=== PATIENT | female | born 1945 | race Caucasian/White ===

== ENCOUNTER 2020-03-17 15:45 | IRF | payer MEDICARE, SELFPAY ==
--- NOTE | ~2020-03-17 | US_ITS ---
EXAMINATION:US venous doppler LE BI INDICATION:Lower extremity swelling TECHNIQUE: Multiple grayscale, color flow and Doppler images of the lower extremity deep venous syste ms were obtained and reviewed. COMPARISON:No prior studies for comparison. FINDINGS: The common femoral, superficial femoral and popliteal veins demonstrate normal respiratory variation, augmentation and compressibility. Color flow is also seen within the posterior tibial, pe roneal, greater saphenous and profunda veins. IMPRESSION: 1: No lower extremity deep venous thrombosis. Reviewed, dictated and finalized at location A.
--- NOTE | ~2020-03-17 | CT_ITS ---
EXAMINATION: CT brain wo con INDICATION: Headache COMPARISON: None TECHNIQUE: Standard unenhanced head CT. The dose-length product (DLP) was 605.33 mGy-cm. The mA was a djusted according to patient size. Iterative reconstruction technique was employed. FINDINGS: There is no acute intraparenchymal hemorrhage. No evidence of mass lesion. No evidence of a cute infarction. Areas of low attenuation are present in the bilateral basal ganglia and midbrain. Th ere is moderate periventricular and subcortical hypodensity probably related to small vessel ischemic disease. There is moderate prominence of the sulci and ventricles related to cerebral atrophy. Intra cranial calcified cerebral atherosclerosis is noted. There are no extra-axial collections. There is n o mass effect or midline shift. The orbits and soft tissues are unremarkable. The visualized sinuses and mastoid air cells are well aerated. IMPRESSION: 1. Areas of low attenuation in the bilateral basal ganglia and midbrain which may reflect subacute or chronic infarct. 2. Age related findings. Reviewed, dictated and finalized at location A. IMPRESSION: 1. Areas of low attenuation in the bilateral basal ganglia and midbrain which m ay reflect subacute or chronic infarct. 2. Age related findings.
[2020-03-17 15:45] VITALS: BP 142/87; PULSE 60; RESP 20; TEMP 36.6; O2SAT 98; BMI 30.3
--- NOTE | 2020-03-17 16:02 | PC.NURSE ---
This patient, Jasmine Wisdom, was admitted to [facility] Room 224-01. Patient/family oriented to hospital policies and general routines including ID bracelet, bed and alarms, visiting hours, pain management, procedures, bathroom and other care routines, personal items, smoking policy, room service/diet, and visiting hours. Valuables list has been completed. Information on how to activate the Rapid Response Team has been discussed. Patient/Family are encouraged to report perceived risks to care and to ask questions if they do not understand what they are told or what they should do.
[2020-03-17] MEDS: CEPHALEXIN 500 MG CAPSULE PO (20:42)
[2020-03-17] MEDS: ATORVASTATIN 40 MG TABLET PO (20:42)
[2020-03-17 22:00] VITALS: BP 169/65; PULSE 60; RESP 18; TEMP 37.4; O2SAT 98
[2020-03-18 04:41] LABS: Basophils Absolute Auto 0.1 K/mm3 (0.0-0.1); Basophils Percent Auto 1.1 % (0.2-1.2); Eosinophils Absolute Auto 0.3 K/mm3 (0-0.3); Eosinophils Percent Auto 6.9 % (0-4.4); Hematocrit 34.6 % (37.0-47.0); Hemoglobin 11.1 g/dL (12.0-15.0); Immature Granulocyte Absolute 0.01 K/mm3 (0.00-0.031); Immature Granulocyte Percent A 0.2 % (0-0.5); Lymphocytes Absolute Auto 1.42 K/mm3 (0.9-3.2); Lymphocytes Percent Auto 30.7 % (18.3-44.2); Mean Corpuscular HGB Conc 32.1 g/dl (32-36); Mean Corpuscular Volume 84.2 fl (80-100); Mean Platelet Volume 11.3 fl (7.4-10.4); Monocytes Absolute Auto 0.7 K/mm3 (0.1-0.6); Monocytes Percent Auto 14.5 % (2.6-8.5); Neutrophils Absolute Auto 2.2 K/mm3 (1.3-6.7); Neutrophils Percent Auto 46.6 % (45.5-73.1); Platelet Count Result 194 k/mm3 (150-375); Red Blood Count 4.11 M/mm3 (4.2-5.4); Red Cell Distribution Width 15.7 % (11.5-14.5); White Blood Count 4.6 K/mm3 (4.5-10.0)
[2020-03-18 04:53] LABS: Blood Urea Nitrogen 24 mg/dL (7-17); Carbon Dioxide 27 mmol/L (22-30); Chloride 107 mmol/L (98-107); Cholesterol 107 mg/dL (0-200); Estimated CRCL calculation 36 ml/min; Estimated Glomerular Filt Rate 44; Glucose 103 mg/dL (65-105); HDL Direct 30 mg/dL; Potassium 3.7 mmol/L (3.4-5.0); Sodium 137 mmol/L (137-145); Triglycerides 138 mg/dL (<150)
[2020-03-18 05:04] LABS: LDL Cholesterol Direct 51 mg/dL
[2020-03-18 06:00] VITALS: BP 195/83; PULSE 53; RESP 18; TEMP 36.4; O2SAT 95
[2020-03-18 09:41] VITALS: PULSE 53
[2020-03-18] MEDS: ASPIRIN 81 MG ENTERIC TABLET PO (09:41)
[2020-03-18] MEDS: atenoloL 50 MG TABLET PO (09:41)
[2020-03-18] MEDS: CEPHALEXIN 500 MG CAPSULE PO ×2 (09:41→20:13)
[2020-03-18] MEDS: CITALOPRAM HYDROBROMIDE 20 MG TABLET PO (09:41)
[2020-03-18] MEDS: CHOLECALCIFEROL 1,000 UNIT TABLET 1000 UNITS PO (09:41)
[2020-03-18] MEDS: PANTOPRAZOLE 40 MG TABLET PO (09:42)
[2020-03-18] MEDS: hydrALAZINE HCL 25 MG TABLET PO ×3 (09:42→17:57)
[2020-03-18] MEDS: CLOPIDOGREL BISULFATE 75 MG TABLET PO (09:42)
[2020-03-18] MEDS: VALSARTAN 80 MG TABLET PO (09:42)
[2020-03-18 13:11] VITALS: BMI 30.3
[2020-03-18 14:00] VITALS: BP 168/68; PULSE 62; RESP 20; TEMP 36.6; O2SAT 100
--- NOTE | 2020-03-18 15:16 | RPD ---
INDIVIDUALIZED PLAN OF CARE FOR Jasmine Wisdom Brief Synthesis of Pre-Admission Screen, Post-Admission Evaluation and Therapy Evaluations: The patient presents to rehab with right internal capsule stroke. Comorbidities include hypertensive emergency, urinary tract infection, hyperlipidemia, mood disorder, acute cystitis, acute pain, headache, dysphagia, left-sided weakness, left sided facial droop. The patient requires physician services for neurology services, medical oversight, and coordination of care. Emotional needs will be monitored as depression is a common sequelae of stroke. The patient needs physician monitoring and treatment of uncontrolled hypertension, urinary tract infection, monitoring for adverse reactions to new medications, monitoring of infection, and pain control. The patient requires nursing services for frequent neuro checks, anticoagulation therapy, medication management and education, pressure relief and skin care management, monitoring of labs, and fall/safety precautions. Deficits include:ADLs, Balance, Endurance, Family Training/Education, Mobility, Pain Management, ROM, Safety, Strength, Swallowing, Transfers Senior Risk Manager/Case Management for: Discharge Planning and Patient/Family Counseling Physical Therapy: 5 days per week for 75 minutes. Treatments may include: Therapeutic Exercise, Gait Training, Neuromuscular Re-education, Transfer Training, Community Reintegration, Bed Mobility, Patient/Family Education, Wheelchair Mobility Group Therapy/Concurrent Therapy Rationales: -Improve attention span during functional activities in a distracted environment. -Enhance problem solving and/or adequate judgment skills during functional activities in a distracted environment. -Promote increased safety awareness in a distracted environment to reduce fall risk with functional tasks, transfers, and ambulation to allow a more safe, self-sufficient return to the home environment. -Improve dynamic balance skills to promote safety and independence with functional activities in a distracted environment for maximum gain. Occupational Therapy: 5 days per week for 75 minutes. Treatments may include: Therapeutic Exercise, Therapeutic Activity, Cognitive Training, Self-Care Transfer Training, Community Reintegration, Home Management, Patient/Family Education, Wheelchair Mobility Training, Energy Conservation Training Group Therapy/Concurrent Therapy Rationales: -Allow therapist to observe and teach generalization and carry-over of skills learned in individual therapy. -Enhance problem solving and sequencing skills during therapeutic activities in a distracted environment. -Promote increased safety awareness in a realistic setting to reduce fall risk with functional tasks due to visual and verbal distractions. -Increase functional level with ADLs, ADL transfers and use of adaptive equipment through therapeutic activities with others while promoting safety to allow a more safe, self-sufficient return home. Speech Therapy: 5 days per week for 30 minutes. Treatments may include: Dysphasia Therapy, Speech/Language/Communication Therapy, Cognitive Training, Patient/Family Education Group Therapy/Concurrent Therapy - Rationale: -Allow therapist to observe and teach generalization and carry-over of skills learned in individual therapy. -Improve comprehension skills with complex or abstract ideas through discussion in a realistic setting. -Enhance problem solving skills with complex issues during activities in a distracted environment. -Promote increased memory skills and concentration in a distracted environment for a safe transition home. -Improve attention and focus with language/communication skills in a realistic and supportive therapeutic setting. -Allow for practice of expression of basic needs and ideas through functional activities with others. Medical Prognosis: Good Anticipated Length of Stay: 14-21 days Rehab Goals: Eating Goal: 06-Independent O
--- NOTE | 2020-03-18 17:53 | REHAB_ITS ---
DATE OF SERVICE: 03/17/2020 ADMISSION HISTORY AND PHYSICAL A 74-year-old right-handed female has been admitted to the rehab floor of [facility] on 03/17/2020. The patient was seen today. The patient's etiological diagnosis is right internal capsular stroke with the primary rehab impairment category of stroke. HISTORY OF PRESENT ILLNESS: A 74-year-old right-handed female with past medical history of: 1. Depression. 2. Hyperlipidemia. 3. Hypertension. Presented to [facility] on 03/12/2020 with left-sided weakness and facial droop. The patient reported she went to sleep around 11:00 p.m. and woke up at 10:00 a.m. and could not get out of bed due to the left-sided weakness. She also noted the droopiness of the face and had difficulties with the speech. CT scan of the head done revealed no intracranial bleed. Blood pressure was 242/95. She was admitted for further evaluation and management by Dr. Lanier, neurologist at that particular hospital. She was started on aspirin, Plavix and atorvastatin. An MRI of the brain, carotid ultrasound and echocardiogram were ordered. MRI of the brain documented an acute stroke in the right internal capsule. The carotid ultrasound revealed no significant stenosis. Echocardiogram was negative with ejection fraction of 73%. She was diagnosed to have an acute stroke in the setting of the hypertensive emergency. She passed a swallowing study and was placed in a pureed diet with no straws. She was also found to have urinary tract infection with E. coli and was placed on Rocephin. Physical examination continued to have the left-sided weakness with impaired balance, decreased gross motor control, and dysphagia. She was discharged to rehab on Lovenox subcutaneous for DVT prophylaxis. The patient has not traveled outside the [place] or had contact with someone who is ill or has traveled outside the [place] in the past 21 days. The patient had not traveled to an area of the [place] that is experiencing known transmission of the coronavirus and has not had any close personal contact with anyone that has. The patient does not have a fever, does not have a lower respiratory illness symptoms. Therapy was initiated at the Acute Care Facility and the patient was transferred to us from [facility] on 03/16/2020. The patient has had no major surgery in the last 100 days prior to admission, has had no falls in the last year and has had no fall with injury in the last year as well. PAST MEDICAL HISTORY: Hypertension, hyperlipidemia, depression along with GI symptoms of nausea and vomiting. PAST SURGICAL HISTORY: EGD and skin biopsies. SOCIAL HISTORY: The patient lives with her 82-year-old in one-level home with 3 steps to enter. She was independent prior with no assistive device. Her is available 07/06 and the patient reports no falls. No major surgery. Never smoker, never drinker or drug abuser. FAMILY HISTORY: Mother has hypertension, diabetes mellitus, depression. Father with prostate cancer, renal stones, cardiac attack. Brother with diabetes and daughter with diabetes as well. ALLERGIES: NONE. MEDICATIONS: At the time of transfer include: 1. Aspirin 81 mg daily. 2. Atenolol 50 mg daily. 3. Atorvastatin 40 mg at night. 4. Cephalexin 500 q.12 hours. 5. Cholecalciferol D3 25 mcg daily. 6. Citalopram 20 mg daily. 7. Clopidogrel 75 mg daily. 8. Hydralazine 25 mg 3 times a day. 9. Nitroglycerin 0.4 mg sublingually p.r.n. 10. Pantoprazole 40 mg daily. 11. Valsartan 80 mg daily. PRIOR LEVEL OF FUNCTION: Eating was independent so is the oral care, toileting, shower and bathing, upper body, lower body, footwear, rolling left and right, sit to lying, lying to sitting, sit to stand, bed to chair, toilet t
[2020-03-18] MEDS: ATORVASTATIN 40 MG TABLET PO (20:13)
[2020-03-18 22:00] VITALS: BP 177/86; PULSE 58; RESP 20; TEMP 37.2; O2SAT 97
[2020-03-19 06:00] VITALS: BP 185/70; PULSE 61; RESP 20; TEMP 36.6; O2SAT 97
[2020-03-19] MEDS: ACETAMINOPHEN 325 MG TABLET 650 MG PO ×2 (08:43→20:46)
[2020-03-19 08:44] VITALS: PULSE 61
[2020-03-19] MEDS: CEPHALEXIN 500 MG CAPSULE PO ×2 (08:44→20:46)
[2020-03-19] MEDS: atenoloL 50 MG TABLET PO (08:44)
[2020-03-19] MEDS: CHOLECALCIFEROL 1,000 UNIT TABLET 1000 UNITS PO (08:44)
[2020-03-19] MEDS: CITALOPRAM HYDROBROMIDE 20 MG TABLET PO (08:44)
[2020-03-19] MEDS: ASPIRIN 81 MG ENTERIC TABLET PO (08:44)
[2020-03-19] MEDS: PANTOPRAZOLE 40 MG TABLET PO (08:45)
[2020-03-19] MEDS: hydrALAZINE HCL 25 MG TABLET PO ×3 (08:45→18:46)
[2020-03-19] MEDS: CLOPIDOGREL BISULFATE 75 MG TABLET PO (08:45)
[2020-03-19] MEDS: VALSARTAN 80 MG TABLET PO (08:45)
[2020-03-19 14:00] VITALS: BP 148/64; PULSE 53; RESP 18; TEMP 36.3; O2SAT 100
--- NOTE | 2020-03-19 14:11 | WPDNEURORHBP ---
Subjective Date/time seen: 03/19/20 14:11 Interval history: this 74-year-old woman is admitted to our rehab floor after having had a right-sided internal capsule infarct with left-sided hemiparesis she is stable on a case was discussed with online the arm is much more involved than the leg she denies any headache nausea vomiting chest pain shortness of breath fever chills sore throat Review of Systems Review of Systems: All systems reviewed & are unremarkable except as noted in HPI and below Functional Status Ambulation Ability Ability to Ambulate 10 Feet: Minimum Assistance X 1 Ambulation Assistive Devices: Cane, Conrado Transfers Ability Ability to Transfer In/Out of Chair: Maximum Assistance X 1 Exam Const: General: comfortable and no acute distress HENMT: General nose exam: Normal nares present Mouth: Yes moist mucous membranes Eyes: General: appearance normal, both eyes and all related structures Neck: Neck: supple and no JVD Resp: Effort & Inspection: normal respiratory effort Auscultation: clear to auscultation bilaterally Cardio: Rate: regular rate Rhythm: regular rhythm GI: GI Palp: Yes Soft to palpation Auscultation: normal bowel sounds Skin: General skin exam: normal color and no rashes or lesions noted Neuro: Other: the patient is awake and alert well oriented follows commands quite well and quite motivated S obvious she has a left-sided hemiparesis were the arm is much more involved than leg with hyperreflexia upgoing toe needing assistance all the activities of daily living Extrem: General: normal to inspection Psych: Mental Status: mental status grossly normal Objective Data Vital Signs Vital Signs: Vital Signs - 24 hr 03/18/20 22:00 03/19/20 06:00 03/19/20 08:44 Temperature 37.2 C 36.6 C Pulse Rate 58 L 61 61 Respiratory Rate 20 20 Blood Pressure 177/86 H 185/70 H Pulse Oximetry 97 97 Intake/Output Intake/Output: Intake & Output 03/16/20 03/17/20 03/18/20 03/19/20 23:59 23:59 23:59 23:59 Intake Total 240 480 480 Balance 240 480 480 Meds/Results Medications: Active Medications Generic Name Dose Route Start Last Admin Trade Name Freq PRN Reason Stop Dose Admin Acetaminophen 650 mg 03/18/20 22:59 03/19/20 08:43 Tylenol Tablet PO 650 mg Q4H PRN Administration Pain or Fever Aspirin 81 mg 03/18/20 09:00 03/19/20 08:44 Aspirin Ec PO 81 mg DAILY CRISTIAN Administration Atenolol 50 mg 03/18/20 09:00 03/19/20 08:44 Tenormin PO 50 mg DAILY CRISTIAN Administration Atorvastatin Calcium 40 mg 03/17/20 21:00 03/18/20 20:13 Lipitor PO 40 mg HS CRISTIAN Administration Cephalexin HCl 500 mg 03/17/20 21:00 03/19/20 08:44 Keflex Capsule PO 03/27/20 09:01 500 mg Q12H CRISTIAN Administration Citalopram Hydrobromide 20 mg 03/18/20 09:00 03/19/20 08:44 Celexa PO 20 mg DAILY CRISTIAN Administration Clopidogrel Bisulfate 75 mg 03/18/20 09:00 03/19/20 08:45 Plavix PO 75 mg DAILY CRISTIAN Administration Hydralazine HCl 25 mg 03/18/20 09:00 03/19/20 13:39 Apresoline Tablet PO 25 mg TID CRISTIAN Administration Nitroglycerin 0.4 mg 03/17/20 18:27 Nitrostat Subl 0.4 Mg (1/150) SUBLINGUAL Q5MIN PRN Chest Pain Pantoprazole Sodium 40 mg 03/18/20 09:00 03/19/20 08:45 Protonix PO 40 mg QAM CRISTIAN Administration Valsartan 80 mg 03/18/20 09:00 03/19/20 08:45 Diovan PO 80 mg DAILY CRISTIAN Administration Vitamin D 1,000 unit 03/18/20 09:00 03/19/20 08:44 Vitamin D PO 1,000 unit DAILY CRISTIAN Administration Progress Note: A&P Assessment and Plan (1) Stroke: Code(s): I63.9 - Cerebral infarction, unspecified Status: Acute (2) Left hemiparesis: Code(s): G81.94 - Hemiplegia, unspecified affecting left nondominant side Status: Acute (3) Hypertension: Code(s): I10 - Essential (primary) hypertension Status: Acute (4) Hyperlipidemia:
[2020-03-19] MEDS: ATORVASTATIN 40 MG TABLET PO (20:46)
[2020-03-19 22:00] VITALS: BP 155/79; PULSE 55; RESP 18; TEMP 36.8; O2SAT 98
[2020-03-20 06:00] VITALS: BP 154/95; PULSE 60; RESP 18; TEMP 36.7; O2SAT 98
[2020-03-20 09:02] VITALS: PULSE 60
[2020-03-20] MEDS: CHOLECALCIFEROL 1,000 UNIT TABLET 1000 UNITS PO (09:02)
[2020-03-20] MEDS: CITALOPRAM HYDROBROMIDE 20 MG TABLET PO (09:02)
[2020-03-20] MEDS: atenoloL 50 MG TABLET PO (09:02)
[2020-03-20] MEDS: PANTOPRAZOLE 40 MG TABLET PO (09:02)
[2020-03-20] MEDS: ASPIRIN 81 MG ENTERIC TABLET PO (09:02)
[2020-03-20] MEDS: VALSARTAN 80 MG TABLET PO (09:02)
[2020-03-20] MEDS: CLOPIDOGREL BISULFATE 75 MG TABLET PO (09:02)
[2020-03-20] MEDS: hydrALAZINE HCL 25 MG TABLET PO ×3 (09:03→16:56)
[2020-03-20] MEDS: CEPHALEXIN 500 MG CAPSULE PO ×2 (09:03→20:26)
[2020-03-20] MEDS: ACETAMINOPHEN 325 MG TABLET 650 MG PO ×2 (11:17→20:25)
--- NOTE | 2020-03-20 13:42 | WPDNEURORHBP ---
Subjective Date/time seen: 03/20/20 13:42 Interval history: this 74-year-old is here with the right-sided internal capsule infarct with left-sided hemiparesis she is doing fairly well engage in therapy quite happy with the care denies any headache nausea vomiting chest pain shortness of breath fever chills or sore throat Review of Systems Review of Systems: All systems reviewed & are unremarkable except as noted in HPI and below Functional Status Ambulation Ability Ability to Ambulate 10 Feet: Minimum Assistance X 1 Ambulation Assistive Devices: Cane, Conrado Transfers Ability Ability to Transfer In/Out of Chair: Maximum Assistance X 1 Exam Const: General: comfortable and no acute distress HENMT: General nose exam: Normal nares present Mouth: Yes moist mucous membranes Eyes: General: appearance normal, both eyes and all related structures Neck: Neck: supple and no JVD Resp: Effort & Inspection: normal respiratory effort Auscultation: clear to auscultation bilaterally Cardio: Rate: regular rate Rhythm: regular rhythm GI: GI Palp: Yes Soft to palpation Auscultation: normal bowel sounds Skin: General skin exam: normal color and no rashes or lesions noted Neuro: Other: patient is awake and alert well oriented time place and person she had left-side sided weakness which is improving already she is quite happy with the care still needing assistance with the activities of daily living Extrem: General: normal to inspection Psych: Mental Status: mental status grossly normal Objective Data Vital Signs Vital Signs: Vital Signs - 24 hr 03/19/20 14:00 03/19/20 22:00 03/20/20 06:00 Temperature 36.3 C L 36.8 C 36.7 C Pulse Rate 53 L 55 L 60 Respiratory Rate 18 18 18 Blood Pressure 148/64 H 155/79 H 154/95 H Pulse Oximetry 100 98 98 03/20/20 09:02 Temperature Pulse Rate 60 Respiratory Rate Blood Pressure Pulse Oximetry Intake/Output Intake/Output: Intake & Output 03/17/20 03/18/20 03/19/20 03/20/20 23:59 23:59 23:59 23:59 Intake Total 240 480 960 360 Balance 240 480 960 360 Meds/Results Medications: Active Medications Generic Name Dose Route Start Last Admin Trade Name Freq PRN Reason Stop Dose Admin Acetaminophen 650 mg 03/18/20 22:59 03/20/20 11:17 Tylenol Tablet PO 650 mg Q4H PRN Administration Pain or Fever Aspirin 81 mg 03/18/20 09:00 03/20/20 09:02 Aspirin Ec PO 81 mg DAILY CRISTIAN Administration Atenolol 50 mg 03/18/20 09:00 03/20/20 09:02 Tenormin PO 50 mg DAILY CRISTIAN Administration Atorvastatin Calcium 40 mg 03/17/20 21:00 03/19/20 20:46 Lipitor PO 40 mg HS CRISTIAN Administration Cephalexin HCl 500 mg 03/17/20 21:00 03/20/20 09:03 Keflex Capsule PO 03/27/20 09:01 500 mg Q12H CRISTIAN Administration Citalopram Hydrobromide 20 mg 03/18/20 09:00 03/20/20 09:02 Celexa PO 20 mg DAILY CRISTIAN Administration Clopidogrel Bisulfate 75 mg 03/18/20 09:00 03/20/20 09:02 Plavix PO 75 mg DAILY CRISTIAN Administration Hydralazine HCl 25 mg 03/18/20 09:00 03/20/20 13:26 Apresoline Tablet PO 25 mg TID CRISTIAN Administration Nitroglycerin 0.4 mg 03/17/20 18:27 Nitrostat Subl 0.4 Mg (1/150) SUBLINGUAL Q5MIN PRN Chest Pain Pantoprazole Sodium 40 mg 03/18/20 09:00 03/20/20 09:02 Protonix PO 40 mg QAM CRISTIAN Administration Valsartan 80 mg 03/18/20 09:00 03/20/20 09:02 Diovan PO 80 mg DAILY CRISTIAN Administration Vitamin D 1,000 unit 03/18/20 09:00 03/20/20 09:02 Vitamin D PO 1,000 unit DAILY CRISTIAN Administration Progress Note: A&P Assessment and Plan (1) Hyperlipidemia: Code(s): E78.5 - Hyperlipidemia, unspecified Status: Acute (2) Hypertension: Code(s): I10 - Essential (primary) hypertension Status: Acute (3) Left hemiparesis: Code(s): G81.94 - Hemiplegia, unspecified affecting left nondominant side Status: Acute (4) Stroke:
[2020-03-20 14:00] VITALS: BP 155/76; PULSE 55; RESP 17; TEMP 36.8; O2SAT 99
[2020-03-20] MEDS: ATORVASTATIN 40 MG TABLET PO (20:26)
[2020-03-20 22:00] VITALS: BP 184/78; PULSE 59; RESP 19; TEMP 36.7; O2SAT 98
[2020-03-21 06:00] VITALS: BP 178/70; PULSE 62; RESP 19; TEMP 36.6; O2SAT 98
[2020-03-21 09:16] VITALS: PULSE 62
[2020-03-21] MEDS: CHOLECALCIFEROL 1,000 UNIT TABLET 1000 UNITS PO (09:16)
[2020-03-21] MEDS: CITALOPRAM HYDROBROMIDE 20 MG TABLET PO (09:16)
[2020-03-21] MEDS: VALSARTAN 80 MG TABLET PO (09:16)
[2020-03-21] MEDS: atenoloL 50 MG TABLET PO (09:16)
[2020-03-21] MEDS: ASPIRIN 81 MG ENTERIC TABLET PO (09:16)
[2020-03-21] MEDS: CEPHALEXIN 500 MG CAPSULE PO ×2 (09:16→21:05)
[2020-03-21] MEDS: PANTOPRAZOLE 40 MG TABLET PO (09:16)
[2020-03-21] MEDS: CLOPIDOGREL BISULFATE 75 MG TABLET PO (09:16)
[2020-03-21] MEDS: hydrALAZINE HCL 25 MG TABLET PO ×3 (09:16→17:12)
[2020-03-21] MEDS: ACETAMINOPHEN 325 MG TABLET 650 MG PO (13:10)
--- NOTE | 2020-03-21 13:28 | WPDNEURORHBP ---
Subjective Date/time seen: 03/21/20 13:28 Interval history: this 74-year-old woman is here with left-sided hemiparesis from the right hemispheric stroke she is doing fairly well denies any headache nausea vomiting chest pain shortness of breath fever chills or sore throat and working with therapy quite well Review of Systems Review of Systems: All systems reviewed & are unremarkable except as noted in HPI and below Functional Status Ambulation Ability Ability to Ambulate 10 Feet: Contact Guard Ability to Ambulate 50 Feet With 2 Turns: Contact Guard Ambulation Assistive Devices: Cane, Conrado Transfers Ability Ability to Transfer In/Out of Chair: Minimum Assistance X 1 Exam Const: General: comfortable and no acute distress HENMT: General nose exam: Normal nares present Mouth: Yes moist mucous membranes Eyes: General: appearance normal, both eyes and all related structures Neck: Neck: supple and no JVD Resp: Effort & Inspection: normal respiratory effort Auscultation: clear to auscultation bilaterally Cardio: Rate: regular rate Rhythm: regular rhythm GI: GI Palp: Yes Soft to palpation Auscultation: normal bowel sounds Skin: General skin exam: normal color and no rashes or lesions noted Neuro: Other: patient is awake alert has normal speech and language fusion normal cranial examination left-sided hemiparesis which is mild to moderate working with therapy Extrem: General: normal to inspection Other: the patient's lower extremities swollen and she will need the venous Doppler Psych: Mental Status: mental status grossly normal Objective Data Vital Signs Vital Signs: Vital Signs - 24 hr 03/21/20 14:00 03/21/20 21:20 03/22/20 07:02 Temperature 36.6 C 36.6 C Pulse Rate 64 55 L 52 L Respiratory Rate 18 18 20 Blood Pressure 164/72 H 178/69 H 196/71 H Pulse Oximetry 100 99 99 03/22/20 07:15 03/22/20 07:21 Temperature 36.2 C L Pulse Rate 52 L 54 L Respiratory Rate 16 Blood Pressure 199/73 H Pulse Oximetry 99 Intake/Output Intake/Output: Intake & Output 03/19/20 03/20/20 03/21/20 03/22/20 23:59 23:59 23:59 23:59 Intake Total 960 600 720 240 Balance 960 600 720 240 Meds/Results Medications: Active Medications Generic Name Dose Route Start Last Admin Trade Name Freq PRN Reason Stop Dose Admin Acetaminophen 650 mg 03/18/20 22:59 03/22/20 13:16 Tylenol Tablet PO 650 mg Q4H PRN Administration Pain or Fever Aspirin 81 mg 03/18/20 09:00 03/22/20 09:06 Aspirin Ec PO 81 mg DAILY CRISTIAN Administration Atenolol 50 mg 03/18/20 09:00 03/22/20 07:15 Tenormin PO 50 mg DAILY CRISTIAN Administration Atorvastatin Calcium 40 mg 03/17/20 21:00 03/21/20 21:05 Lipitor PO 40 mg HS CRISTIAN Administration Cephalexin HCl 500 mg 03/17/20 21:00 03/22/20 09:06 Keflex Capsule PO 03/27/20 09:01 500 mg Q12H CRISTIAN Administration Citalopram Hydrobromide 20 mg 03/18/20 09:00 03/22/20 09:06 Celexa PO 20 mg DAILY CRISTIAN Administration Clopidogrel Bisulfate 75 mg 03/18/20 09:00 03/22/20 09:06 Plavix PO 75 mg DAILY CRISTIAN Administration Hydralazine HCl 25 mg 03/18/20 09:00 03/22/20 13:17 Apresoline Tablet PO 25 mg TID CRISTIAN Administration Nitroglycerin 0.4 mg 03/17/20 18:27 Nitrostat Subl 0.4 Mg (1/150) SUBLINGUAL Q5MIN PRN Chest Pain Pantoprazole Sodium 40 mg 03/18/20 09:00 03/22/20 09:06 Protonix PO 40 mg QAM CRISTIAN Administration Valsartan 80 mg 03/18/20 09:00 03/22/20 07:15 Diovan PO 80 mg DAILY CRISTIAN Administration Vitamin D 1,000 unit 03/18/20 09:00 03/22/20 09:06 Vitamin D PO 1,000 unit DAILY CRISTIAN Administration Progress Note: A&P Assessment and Plan (1) Swelling of lower extremity: Code(s): M79.89 - Other specified soft tissue disorders Status: Acute (2) Hyperlipidemia: Code(s): E78.5 - Hyperlipidemia, unspecified Status: Acute (3) Hypertensio
[2020-03-21 14:00] VITALS: BP 164/72; PULSE 64; RESP 18; TEMP 36.6; O2SAT 100
[2020-03-21] MEDS: ATORVASTATIN 40 MG TABLET PO (21:05)
[2020-03-21 21:20] VITALS: BP 178/69; PULSE 55; RESP 18; TEMP 36.6; O2SAT 99
[2020-03-22 07:02] VITALS: BP 196/71; PULSE 52; RESP 20; O2SAT 99
[2020-03-22 07:15] VITALS: PULSE 52
[2020-03-22] MEDS: hydrALAZINE HCL 25 MG TABLET PO ×3 (07:15→17:15)
[2020-03-22] MEDS: atenoloL 50 MG TABLET PO (07:15)
[2020-03-22] MEDS: VALSARTAN 80 MG TABLET PO (07:15)
[2020-03-22 07:21] VITALS: BP 199/73; PULSE 54; RESP 16; TEMP 36.2; O2SAT 99
[2020-03-22] MEDS: CITALOPRAM HYDROBROMIDE 20 MG TABLET PO (09:06)
[2020-03-22] MEDS: CEPHALEXIN 500 MG CAPSULE PO ×2 (09:06→20:29)
[2020-03-22] MEDS: CLOPIDOGREL BISULFATE 75 MG TABLET PO (09:06)
[2020-03-22] MEDS: CHOLECALCIFEROL 1,000 UNIT TABLET 1000 UNITS PO (09:06)
[2020-03-22] MEDS: ASPIRIN 81 MG ENTERIC TABLET PO (09:06)
[2020-03-22] MEDS: PANTOPRAZOLE 40 MG TABLET PO (09:06)
[2020-03-22] MEDS: ACETAMINOPHEN 325 MG TABLET 650 MG PO ×2 (13:16→20:30)
[2020-03-22 14:00] VITALS: BP 154/78; PULSE 58; RESP 18; TEMP 36.6; O2SAT 100
--- NOTE | 2020-03-22 15:32 | WPDNEURORHBP ---
Subjective Date/time seen: 03/22/20 15:32 Interval history: this 74-year-old woman is here with left-sided hemiparesis she was complaining of leg swelling venous Doppler is negative she denies any headache nausea vomiting chest pain shortness of breath she remains very stable and working with therapy Review of Systems Review of Systems: All systems reviewed & are unremarkable except as noted in HPI and below Functional Status Ambulation Ability Ability to Ambulate 10 Feet: Contact Guard Ability to Ambulate 50 Feet With 2 Turns: Minimum Assistance X 1 Ambulation Assistive Devices: Cane, Conrado Transfers Ability Ability to Transfer In/Out of Chair: Minimum Assistance X 1 Exam Const: General: comfortable and no acute distress HENMT: General nose exam: Normal nares present Mouth: Yes moist mucous membranes Eyes: General: appearance normal, both eyes and all related structures Neck: Neck: supple and no JVD Resp: Effort & Inspection: normal respiratory effort Auscultation: clear to auscultation bilaterally Cardio: Rate: regular rate Rhythm: regular rhythm GI: GI Palp: Yes Soft to palpation Auscultation: normal bowel sounds Skin: General skin exam: normal color and no rashes or lesions noted Neuro: Other: patient is awake alert and and not any distress as left-sided hemiparesis from which she is improving quite well the venous Doppler is negative overall neurological status Extrem: Other: lower extremity swelling stable Psych: Mental Status: mental status grossly normal Objective Data Vital Signs Vital Signs: Vital Signs - 24 hr 03/21/20 21:20 03/22/20 07:02 03/22/20 07:15 Temperature 36.6 C Pulse Rate 55 L 52 L 52 L Respiratory Rate 18 20 Blood Pressure 178/69 H 196/71 H Pulse Oximetry 99 99 03/22/20 07:21 Temperature 36.2 C L Pulse Rate 54 L Respiratory Rate 16 Blood Pressure 199/73 H Pulse Oximetry 99 Intake/Output Intake/Output: Intake & Output 03/19/20 03/20/20 03/21/20 03/22/20 23:59 23:59 23:59 23:59 Intake Total 960 600 720 480 Balance 960 600 720 480 Meds/Results Medications: Active Medications Generic Name Dose Route Start Last Admin Trade Name Freq PRN Reason Stop Dose Admin Acetaminophen 650 mg 03/18/20 22:59 03/22/20 13:16 Tylenol Tablet PO 650 mg Q4H PRN Administration Pain or Fever Aspirin 81 mg 03/18/20 09:00 03/22/20 09:06 Aspirin Ec PO 81 mg DAILY CRISTIAN Administration Atenolol 50 mg 03/18/20 09:00 03/22/20 07:15 Tenormin PO 50 mg DAILY CRSITIAN Administration Atorvastatin Calcium 40 mg 03/17/20 21:00 03/21/20 21:05 Lipitor PO 40 mg HS CRISTIAN Administration Cephalexin HCl 500 mg 03/17/20 21:00 03/22/20 09:06 Keflex Capsule PO 03/27/20 09:01 500 mg Q12H CRISTIAN Administration Citalopram Hydrobromide 20 mg 03/18/20 09:00 03/22/20 09:06 Celexa PO 20 mg DAILY CRISTIAN Administration Clopidogrel Bisulfate 75 mg 03/18/20 09:00 03/22/20 09:06 Plavix PO 75 mg DAILY CRISTIAN Administration Hydralazine HCl 25 mg 03/18/20 09:00 03/22/20 13:17 Apresoline Tablet PO 25 mg TID CRISTIAN Administration Nitroglycerin 0.4 mg 03/17/20 18:27 Nitrostat Subl 0.4 Mg (1/150) SUBLINGUAL Q5MIN PRN Chest Pain Pantoprazole Sodium 40 mg 03/18/20 09:00 03/22/20 09:06 Protonix PO 40 mg QAM CRISTIAN Administration Valsartan 80 mg 03/18/20 09:00 03/22/20 07:15 Diovan PO 80 mg DAILY CRISTIAN Administration Vitamin D 1,000 unit 03/18/20 09:00 03/22/20 09:06 Vitamin D PO 1,000 unit DAILY CRISTIAN Administration Radiology Results: ITS Impressions Venous Doppler Study 03/22/20 15:27 IMPRESSION: 1: No lower extremity deep venous thrombosis. Progress Note: A&P Assessment and Plan (1) Swelling of lower extremity: Code(s): M79.89 - Other specified soft tissue disorders Status: Acute (2) Hyperlipidemia: Code(s): E78.5 - Hyperlipidemi
[2020-03-22] MEDS: ATORVASTATIN 40 MG TABLET PO (20:30)
[2020-03-22 22:00] VITALS: BP 180/76; PULSE 57; RESP 18; TEMP 36.4; O2SAT 97
[2020-03-23 06:00] VITALS: BP 191/83; PULSE 60; RESP 20; TEMP 36.8; O2SAT 100
[2020-03-23] MEDS: hydrALAZINE HCL 25 MG TABLET PO ×3 (06:41→20:38)
[2020-03-23 08:00] VITALS: PULSE 60; RESP 20; O2SAT 100
[2020-03-23 09:05] VITALS: PULSE 60
[2020-03-23] MEDS: CLOPIDOGREL BISULFATE 75 MG TABLET PO (09:05)
[2020-03-23] MEDS: atenoloL 50 MG TABLET PO (09:05)
[2020-03-23] MEDS: CEPHALEXIN 500 MG CAPSULE PO ×2 (09:05→20:38)
[2020-03-23] MEDS: CITALOPRAM HYDROBROMIDE 20 MG TABLET PO (09:05)
[2020-03-23] MEDS: ASPIRIN 81 MG ENTERIC TABLET PO (09:05)
[2020-03-23] MEDS: PANTOPRAZOLE 40 MG TABLET PO (09:06)
[2020-03-23] MEDS: CHOLECALCIFEROL 1,000 UNIT TABLET 1000 UNITS PO (09:06)
[2020-03-23] MEDS: VALSARTAN 80 MG TABLET PO (09:06)
--- NOTE | 2020-03-23 12:26 | WPDNEURORHBP ---
Subjective Date/time seen: Left hemiparesis with LLE swelling but negative [id number]/09/20 12:26 Review of Systems Review of Systems: All systems reviewed & are unremarkable except as noted in HPI and below Functional Status Ambulation Ability Ability to Ambulate 10 Feet: Contact Guard Ability to Ambulate 50 Feet With 2 Turns: Contact Guard Ambulation Assistive Devices: Cane, Conrado Transfers Ability Ability to Transfer In/Out of Chair: Minimum Assistance X 1 Exam Const: General: cooperative and no acute distress HENMT: Head: normal to inspection General nose exam: Normal external nose present and No nasal discharge present Mouth: Yes Normal oral and palatal mucosa present Eyes: General: appearance normal, both eyes and all related structures Neck: Neck: full ROM Resp: Effort & Inspection: normal respiratory effort Auscultation: clear to auscultation bilaterally Cardio: Rate: regular rate Rhythm: regular rhythm GI: Auscultation: normal bowel sounds Skin: General skin exam: no rashes or lesions noted Neuro: General: patient oriented x3 Motor exam (neuro): Abnormal motor strength present (left hemiparesis recovering ) Psych: Appearance: grossly normal Objective Data Vital Signs Vital Signs: Vital Signs - 24 hr 03/22/20 14:00 03/22/20 22:00 03/23/20 06:00 Temperature 36.6 C 36.4 C 36.8 C Pulse Rate 58 L 57 L 60 Respiratory Rate 18 18 20 Blood Pressure 154/78 H 180/76 H 191/83 H Pulse Oximetry 100 97 100 03/23/20 09:05 Temperature Pulse Rate 60 Respiratory Rate Blood Pressure Pulse Oximetry Intake/Output Intake/Output: Intake & Output 03/20/20 03/21/20 03/22/20 03/23/20 23:59 23:59 23:59 23:59 Intake Total 600 720 720 240 Balance 600 720 720 240 Meds/Results Medications: Active Medications Generic Name Dose Route Start Last Admin Trade Name Freq PRN Reason Stop Dose Admin Acetaminophen 650 mg 03/18/20 22:59 03/22/20 20:30 Tylenol Tablet PO 650 mg Q4H PRN Administration Pain or Fever Aspirin 81 mg 03/18/20 09:00 03/23/20 09:05 Aspirin Ec PO 81 mg DAILY CRISTIAN Administration Atenolol 50 mg 03/18/20 09:00 03/23/20 09:05 Tenormin PO 50 mg DAILY CRISTIAN Administration Atorvastatin Calcium 40 mg 03/17/20 21:00 03/22/20 20:30 Lipitor PO 40 mg HS CRISTIAN Administration Cephalexin HCl 500 mg 03/17/20 21:00 03/23/20 09:05 Keflex Capsule PO 03/27/20 09:01 500 mg Q12H CRISTIAN Administration Citalopram Hydrobromide 20 mg 03/18/20 09:00 03/23/20 09:05 Celexa PO 20 mg DAILY CRISTIAN Administration Clopidogrel Bisulfate 75 mg 03/18/20 09:00 03/23/20 09:05 Plavix PO 75 mg DAILY CRISTIAN Administration Hydralazine HCl 25 mg 03/23/20 06:05 03/23/20 06:41 Apresoline Tablet PO 25 mg Q8HR CRISTIAN Administration Nitroglycerin 0.4 mg 03/17/20 18:27 Nitrostat Subl 0.4 Mg (1/150) SUBLINGUAL Q5MIN PRN Chest Pain Pantoprazole Sodium 40 mg 03/18/20 09:00 03/23/20 09:06 Protonix PO 40 mg QAM CRISTIAN Administration Valsartan 80 mg 03/18/20 09:00 03/23/20 09:06 Diovan PO 80 mg DAILY CRISTIAN Administration Vitamin D 1,000 unit 03/18/20 09:00 03/23/20 09:06 Vitamin D PO 1,000 unit DAILY CRISTIAN Administration Radiology Results: ITS Impressions Venous Doppler Study 03/22/20 15:27 IMPRESSION: 1: No lower extremity deep venous thrombosis. Progress Note: A&P Assessment and Plan (1) Swelling of lower extremity: Code(s): M79.89 - Other specified soft tissue disorders Status: Acute (2) Hyperlipidemia: Code(s): E78.5 - Hyperlipidemia, unspecified Status: Acute (3) Hypertension: Code(s): I10 - Essential (primary) hypertension Status: Acute (4) Left hemiparesis: Code(s): G81.94 - Hemiplegia, unspecified affecting left nondominant side Status: Acute (5) Stroke: Code(s): I63.9 - Cerebral infarction, unspec
[2020-03-23 14:00] VITALS: BP 148/72; PULSE 68; RESP 20; TEMP 36.6; O2SAT 98
[2020-03-23] MEDS: ATORVASTATIN 40 MG TABLET PO (20:38)
[2020-03-23 22:00] VITALS: BP 161/72; PULSE 68; RESP 17; TEMP 36.9; O2SAT 98
[2020-03-24] MEDS: hydrALAZINE HCL 25 MG TABLET PO ×3 (05:32→20:04)
[2020-03-24 06:00] VITALS: BP 164/93; PULSE 63; RESP 19; TEMP 36.4; O2SAT 98
[2020-03-24 08:00] VITALS: PULSE 63; RESP 19; O2SAT 98
[2020-03-24 08:59] VITALS: PULSE 63
[2020-03-24] MEDS: CLOPIDOGREL BISULFATE 75 MG TABLET PO (08:59)
[2020-03-24] MEDS: CHOLECALCIFEROL 1,000 UNIT TABLET 1000 UNITS PO (08:59)
[2020-03-24] MEDS: CITALOPRAM HYDROBROMIDE 20 MG TABLET PO (08:59)
[2020-03-24] MEDS: CEPHALEXIN 500 MG CAPSULE PO ×2 (08:59→20:03)
[2020-03-24] MEDS: atenoloL 50 MG TABLET PO (08:59)
[2020-03-24] MEDS: VALSARTAN 80 MG TABLET PO (08:59)
[2020-03-24] MEDS: PANTOPRAZOLE 40 MG TABLET PO (08:59)
[2020-03-24] MEDS: ASPIRIN 81 MG ENTERIC TABLET PO (08:59)
[2020-03-24 14:00] VITALS: BP 156/74; PULSE 78; RESP 20; TEMP 36.6; O2SAT 100
[2020-03-24] MEDS: ATORVASTATIN 40 MG TABLET PO (20:04)
[2020-03-24 22:00] VITALS: BP 155/74; PULSE 55; RESP 16; TEMP 37.1; O2SAT 97
[2020-03-25 05:01] LABS: Basophils Percent Auto 0.9 % (0.2-1.2); Eosinophils Absolute Auto 0.2 K/mm3 (0-0.3); Eosinophils Percent Auto 5.4 % (0-4.4); Hematocrit 35.8 % (37.0-47.0); Hemoglobin 11.2 g/dL (12.0-15.0); Immature Granulocyte Absolute 0.01 K/mm3 (0.00-0.031); Immature Granulocyte Percent A 0.2 % (0-0.5); Lymphocytes Absolute Auto 1.35 K/mm3 (0.9-3.2); Lymphocytes Percent Auto 30.3 % (18.3-44.2); Mean Corpuscular HGB Conc 31.3 g/dl (32-36); Mean Corpuscular Hemoglobin 26.7 pg (26-34); Mean Corpuscular Volume 85.4 fl (80-100); Monocytes Absolute Auto 0.7 K/mm3 (0.1-0.6); Monocytes Percent Auto 14.6 % (2.6-8.5); Neutrophils Absolute Auto 2.2 K/mm3 (1.3-6.7); Neutrophils Percent Auto 48.6 % (45.5-73.1); Platelet Count Result 205 k/mm3 (150-375); Red Blood Count 4.19 M/mm3 (4.2-5.4); Red Cell Distribution Width 15.9 % (11.5-14.5); White Blood Count 4.5 K/mm3 (4.5-10.0)
[2020-03-25 05:14] LABS: Blood Urea Nitrogen 20 mg/dL (7-17); Carbon Dioxide 25 mmol/L (22-30); Chloride 108 mmol/L (98-107); Estimated CRCL calculation 36 ml/min; Estimated Glomerular Filt Rate 44; Glucose 97 mg/dL (65-105); Potassium 3.9 mmol/L (3.4-5.0); Sodium 137 mmol/L (137-145)
[2020-03-25 06:00] VITALS: BP 161/58; PULSE 54; RESP 14; TEMP 36.4; O2SAT 97
[2020-03-25] MEDS: hydrALAZINE HCL 25 MG TABLET PO ×3 (06:03→20:44)
[2020-03-25 09:00] VITALS: PULSE 58; RESP 14; O2SAT 97
[2020-03-25 09:33] VITALS: PULSE 58
[2020-03-25] MEDS: CHOLECALCIFEROL 1,000 UNIT TABLET 1000 UNITS PO (09:33)
[2020-03-25] MEDS: atenoloL 50 MG TABLET PO (09:33)
[2020-03-25] MEDS: VALSARTAN 80 MG TABLET PO (09:33)
[2020-03-25] MEDS: CLOPIDOGREL BISULFATE 75 MG TABLET PO (09:34)
[2020-03-25] MEDS: CEPHALEXIN 500 MG CAPSULE PO ×2 (09:34→20:44)
[2020-03-25] MEDS: PANTOPRAZOLE 40 MG TABLET PO (09:34)
[2020-03-25] MEDS: CITALOPRAM HYDROBROMIDE 20 MG TABLET PO (09:34)
[2020-03-25] MEDS: ASPIRIN 81 MG ENTERIC TABLET PO (09:34)
[2020-03-25] MEDS: ACETAMINOPHEN 325 MG TABLET 650 MG PO ×2 (09:35→20:46)
--- NOTE | 2020-03-25 09:55 | PCPTNOTE ---
Jasmine Wisdom was evaluated for a hemicane on 03/25/2020 by this physical therapist. The hemicane will resolve patient's mobility limitations and will be used for ADL's within the home. The patient can safely use the hemicane. ?The hemicane will resolve the patient?s mobility deficits, including for all transfers, gait in and out of home, and stairs safety. Barb Alberts PT
--- NOTE | 2020-03-25 11:20 | PCDIET ---
Nutrition Follow-Up Complete: Nutrition Diagnosis: Decreased fat/cholesterol needs related to cardiovascular disease as evidenced by CVA. Nutrition Goal: Patient will continue to consume 75% of meals or greater. Goal met. Patient consuming 75-100% of meals on 2g sodium, pureed diet. Recommend addition of heart healthy diet lobsterman. Last recorded weight is 80.1 kg. Recommend obtaining new weight. Bowel Motility: +BM on 03/22/20. Labs Reviewed: BUN (20), Cr (1.2) Meds Noted: Keflex, Protonix, Diovan, Vitamin D Additional Notes: No documented skin breakdown. Will continue to monitor with same goal. Nutrition Monitoring and Evaluation: Follow up in 7 days.
[2020-03-25 14:00] VITALS: BP 152/75; PULSE 50; RESP 16; TEMP 36.4; O2SAT 98
--- NOTE | 2020-03-25 17:45 | WPDNEURORHBP ---
Subjective Date/time seen: Left [id number]/11/20 17:45 Functional Status Ambulation Ability Ability to Ambulate 10 Feet: Contact Guard Ability to Ambulate 50 Feet With 2 Turns: Contact Guard Ability to Ambulate 150 Feet: Contact Guard Ambulation Assistive Devices: Cane, Conrado Transfers Ability Ability to Transfer In/Out of Chair: Minimum Assistance X 1 Exam Const: General: cooperative and no acute distress Eyes: General: appearance normal, both eyes and all related structures Neck: Neck: full ROM Resp: Effort & Inspection: normal respiratory effort Auscultation: clear to auscultation bilaterally Cardio: Rate: regular rate Rhythm: regular rhythm Skin: General skin exam: no rashes or lesions noted Neuro: General: patient oriented x3 and moves all extremities Cranial nerves: Yes Midline tongue present, Yes Symmetric palate elevation present and Yes Ability to bilaterally rotate head present Cognition (Neuro): normal cognition Motor exam (neuro): Abnormal motor strength present (left hemiparesis) Psych: Appearance: grossly normal Objective Data Vital Signs Vital Signs: Vital Signs - 24 hr 03/24/20 22:00 03/25/20 06:00 03/25/20 09:00 Temperature 37.1 C 36.4 C Pulse Rate 55 L 54 L 58 L Respiratory Rate 16 14 14 Blood Pressure 155/74 H 161/58 H Pulse Oximetry 97 97 97 03/25/20 09:33 03/25/20 14:00 Temperature 36.4 C Pulse Rate 58 L 50 L Respiratory Rate 16 Blood Pressure 152/75 H Pulse Oximetry 98 Intake/Output Intake/Output: Intake & Output 03/22/20 03/23/20 03/24/20 03/25/20 23:59 23:59 23:59 23:59 Intake Total 720 720 600 480 Balance 720 720 600 480 Meds/Results Medications: Active Medications Generic Name Dose Route Start Last Admin Trade Name Freq PRN Reason Stop Dose Admin Acetaminophen 650 mg 03/18/20 22:59 03/25/20 09:35 Tylenol Tablet PO 650 mg Q4H PRN Administration Pain or Fever Aspirin 81 mg 03/18/20 09:00 03/25/20 09:34 Aspirin Ec PO 81 mg DAILY CRISTIAN Administration Atenolol 50 mg 03/18/20 09:00 03/25/20 09:33 Tenormin PO 50 mg DAILY CRISTIAN Administration Atorvastatin Calcium 40 mg 03/17/20 21:00 03/24/20 20:04 Lipitor PO 40 mg HS CRISTIAN Administration Cephalexin HCl 500 mg 03/17/20 21:00 03/25/20 09:34 Keflex Capsule PO 03/27/20 09:01 500 mg Q12H CRSITIAN Administration Citalopram Hydrobromide 20 mg 03/18/20 09:00 03/25/20 09:34 Celexa PO 20 mg DAILY CRISTIAN Administration Clopidogrel Bisulfate 75 mg 03/18/20 09:00 03/25/20 09:34 Plavix PO 75 mg DAILY CRISTIAN Administration Hydralazine HCl 25 mg 03/23/20 06:05 03/25/20 13:48 Apresoline Tablet PO 25 mg Q8HR CRISTIAN Administration Nitroglycerin 0.4 mg 03/17/20 18:27 Nitrostat Subl 0.4 Mg (1/150) SUBLINGUAL Q5MIN PRN Chest Pain Pantoprazole Sodium 40 mg 03/18/20 09:00 03/25/20 09:34 Protonix PO 40 mg QAM CRISTIAN Administration Valsartan 80 mg 03/18/20 09:00 03/25/20 09:33 Diovan PO 80 mg DAILY CRISTIAN Administration Vitamin D 1,000 unit 03/18/20 09:00 03/25/20 09:33 Vitamin D PO 1,000 unit DAILY CRISTIAN Administration Radiology Results: ITS Impressions Venous Doppler Study 03/22/20 15:27 IMPRESSION: 1: No lower extremity deep venous thrombosis. Labs Labs: Laboratory Results - last 24 hr 03/25/20 03/25/20 04:46 04:46 WBC 4.5 RBC 4.19 L Hgb 11.2 L Hct 35.8 L MCV 85.4 MCH 26.7 MCHC 31.3 L RDW 15.9 H Plt Count 205 MPV 12.0 H Immature Gran % (Auto) 0.2 Neut % (Auto) 48.6 Lymph % (Auto) 30.3 [place] % (Auto) 14.6 H Eos % (Auto) 5.4 H Baso % (Auto) 0.9 Lymph # (Auto) 1.35 [place] # (Auto) 0.7 H Eos # (Auto) 0.2 Baso # (Auto) 0.0 Abs Immat Gran (auto) 0.01 Absolute Neuts (auto) 2.2 Absolute Nucleated RBC 0.0 Nucleated RBC % 0.0 Sodium 137 Potassium 3.9 Chloride 108 H Carbon Dioxide 25 BUN 20 H Cre
[2020-03-25] MEDS: ATORVASTATIN 40 MG TABLET PO (20:44)
[2020-03-25 22:00] VITALS: BP 161/76; PULSE 54; RESP 18; TEMP 37.2; O2SAT 100
[2020-03-26] VITALS (8 sets, daily range): BP systolic 133–189; BP diastolic 74–95; PULSE 54–62; RESP 18; TEMP 36.2–36.7; O2SAT 97–100
[2020-03-26] MEDS: hydrALAZINE HCL 25 MG TABLET PO ×3 (06:47→20:23)
[2020-03-26] MEDS: atenoloL 50 MG TABLET PO (08:33)
[2020-03-26] MEDS: CLOPIDOGREL BISULFATE 75 MG TABLET PO (08:33)
[2020-03-26] MEDS: PANTOPRAZOLE 40 MG TABLET PO (08:33)
[2020-03-26] MEDS: CITALOPRAM HYDROBROMIDE 20 MG TABLET PO (08:33)
[2020-03-26] MEDS: CEPHALEXIN 500 MG CAPSULE PO ×2 (08:33→20:22)
[2020-03-26] MEDS: ASPIRIN 81 MG ENTERIC TABLET PO (08:34)
[2020-03-26] MEDS: VALSARTAN 80 MG TABLET PO (08:34)
[2020-03-26] MEDS: CHOLECALCIFEROL 1,000 UNIT TABLET 1000 UNITS PO (08:34)
--- NOTE | 2020-03-26 09:25 | PC.NURSE ---
Patient c/o pressure to top of head, states, It feels like someone is squeezing it. Denies c/o headache or visual disturbances. Neuro checks WNL for patient baseline. Alert/oriented x 4. VSS with BP 134/72. Continuing with therapy session at this time. Dr Osorio notified.
--- NOTE | 2020-03-26 09:40 | PC.NURSE ---
Patient advised of 's orders for CT of head. She is agreeable and voices understanding. No change in neuro assessment.
[2020-03-26] MEDS: ACETAMINOPHEN 325 MG TABLET 650 MG PO (10:37)
--- NOTE | 2020-03-26 16:19 | WPDNEURORHBP ---
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 she is doing fairly well she denies any new complaints she denies any headache nausea vomiting chest pain shortness of breath fever chills or sore throat Review of Systems Review of Systems: All systems reviewed & are unremarkable except as noted in HPI and below Functional Status Ambulation Ability Ability to Ambulate 10 Feet: Contact Guard Ability to Ambulate 50 Feet With 2 Turns: Contact Guard Ability to Ambulate 150 Feet: Contact Guard Ambulation Assistive Devices: Cane, Conrado Transfers Ability Ability to Transfer In/Out of Chair: Minimum Assistance X 1 Exam Const: General: comfortable and no acute distress HENMT: General nose exam: Normal nares present Mouth: Yes moist mucous membranes Eyes: General: appearance normal, both eyes and all related structures Neck: Neck: supple and no JVD Resp: Effort & Inspection: normal respiratory effort Auscultation: clear to auscultation bilaterally Cardio: Rate: regular rate Rhythm: regular rhythm GI: GI Palp: Yes Soft to palpation Auscultation: normal bowel sounds Skin: General skin exam: normal color and no rashes or lesions noted Neuro: Other: she is slowly improving in the overall neurological status Extrem: General: normal to inspection Psych: Mental Status: mental status grossly normal Objective Data Vital Signs Vital Signs: Vital Signs - 24 hr 03/25/20 22:00 03/26/20 06:00 03/26/20 08:00 Temperature 37.2 C 36.2 C L Pulse Rate 54 L 55 L 57 L Respiratory Rate 18 18 18 Blood Pressure 161/76 H Pulse Oximetry 100 98 99 03/26/20 08:33 03/26/20 09:15 03/26/20 10:37 Temperature 36.2 C L Pulse Rate 62 57 L Respiratory Rate 18 Blood Pressure 133/74 Pulse Oximetry 99 03/26/20 14:00 Temperature 36.7 C Pulse Rate 54 L Respiratory Rate 18 Blood Pressure 158/80 H Pulse Oximetry 97 Intake/Output Intake/Output: Intake & Output 03/23/20 03/24/20 03/25/20 03/26/20 23:59 23:59 23:59 23:59 Intake Total 720 600 840 960 Balance 720 600 840 960 Meds/Results Medications: Active Medications Generic Name Dose Route Start Last Admin Trade Name Freq PRN Reason Stop Dose Admin Acetaminophen 650 mg 03/18/20 22:59 03/26/20 10:37 Tylenol Tablet PO 650 mg Q4H PRN Administration Pain or Fever Aspirin 81 mg 03/18/20 09:00 03/26/20 08:34 Aspirin Ec PO 81 mg DAILY CRISTIAN Administration Atenolol 50 mg 03/18/20 09:00 03/26/20 08:33 Tenormin PO 50 mg DAILY CRISTIAN Administration Atorvastatin Calcium 40 mg 03/17/20 21:00 03/25/20 20:44 Lipitor PO 40 mg HS CRISTIAN Administration Cephalexin HCl 500 mg 03/17/20 21:00 03/26/20 08:33 Keflex Capsule PO 03/27/20 09:01 500 mg Q12H CRISTIAN Administration Citalopram Hydrobromide 20 mg 03/18/20 09:00 03/26/20 08:33 Celexa PO 20 mg DAILY CRISTIAN Administration Clopidogrel Bisulfate 75 mg 03/18/20 09:00 03/26/20 08:33 Plavix PO 75 mg DAILY CRISTIAN Administration Hydralazine HCl 25 mg 03/23/20 06:05 03/26/20 14:02 Apresoline Tablet PO 25 mg Q8HR CRISTIAN Administration Nitroglycerin 0.4 mg 03/17/20 18:27 Nitrostat Subl 0.4 Mg (1/150) SUBLINGUAL Q5MIN PRN Chest Pain Pantoprazole Sodium 40 mg 03/18/20 09:00 03/26/20 08:33 Protonix PO 40 mg QAM CRISTIAN Administration Valsartan 80 mg 03/18/20 09:00 03/26/20 08:34 Diovan PO 80 mg DAILY CRISTIAN Administration Vitamin D 1,000 unit 03/18/20 09:00 03/26/20 08:34 Vitamin D PO 1,000 unit DAILY CRISTIAN Administration Radiology Results: ITS Impressions Venous Doppler Study 03/22/20 15:27 IMPRESSION: 1: No lower extremity deep venous thrombosis. Head CT 03/26/20 10:21 IMPRESSION: 1. Areas of low attenuation in the bilateral basal ganglia and midbrain which
[2020-03-26] MEDS: ATORVASTATIN 40 MG TABLET PO (20:22)
[2020-03-27] MEDS: hydrALAZINE HCL 25 MG TABLET PO ×3 (05:59→21:38)
[2020-03-27 06:00] VITALS: BP 193/89; PULSE 58; RESP 18; TEMP 36.8; O2SAT 98
[2020-03-27] MEDS: CLOPIDOGREL BISULFATE 75 MG TABLET PO (08:33)
[2020-03-27] MEDS: PANTOPRAZOLE 40 MG TABLET PO (08:33)
[2020-03-27] MEDS: CHOLECALCIFEROL 1,000 UNIT TABLET 1000 UNITS PO (08:33)
[2020-03-27] MEDS: ASPIRIN 81 MG ENTERIC TABLET PO (08:33)
[2020-03-27] MEDS: CITALOPRAM HYDROBROMIDE 20 MG TABLET PO (08:33)
[2020-03-27] MEDS: CEPHALEXIN 500 MG CAPSULE PO (08:33)
[2020-03-27 08:34] VITALS: PULSE 58
[2020-03-27] MEDS: VALSARTAN 80 MG TABLET PO (08:34)
[2020-03-27] MEDS: atenoloL 50 MG TABLET PO (08:34)
--- NOTE | 2020-03-27 13:57 | WPDNEURORHBP ---
Subjective Date/time seen: 03/27/20 13:57 Interval history: this pleasant 74-year-old woman is here after having had stroke left-sided hemiparesis she is doing fairly well and engage in therapy denies any headache nausea vomiting chest pain shortness of breath fever chills or sore throat Review of Systems Review of Systems: All systems reviewed & are unremarkable except as noted in HPI and below Functional Status Ambulation Ability Ability to Ambulate 10 Feet: Standby Assistance Ability to Ambulate 50 Feet With 2 Turns: Contact Guard Ability to Ambulate 150 Feet: Contact Guard Ambulation Assistive Devices: Cane, Conrado Transfers Ability Ability to Transfer In/Out of Chair: Minimum Assistance X 1 Exam Const: General: comfortable and no acute distress HENMT: General nose exam: Normal nares present Mouth: Yes moist mucous membranes Eyes: General: appearance normal, both eyes and all related structures Neck: Neck: supple and no JVD Resp: Effort & Inspection: normal respiratory effort Auscultation: clear to auscultation bilaterally Cardio: Rate: regular rate Rhythm: regular rhythm GI: GI Palp: Yes Soft to palpation Auscultation: normal bowel sounds Skin: General skin exam: normal color and no rashes or lesions noted Neuro: Other: the patient is awake and alert well oriented she is moving the therapy quite well and getting better left-sided hemiparesis is improving and she is happy with the improvement she noticed Extrem: General: normal to inspection Psych: Mental Status: mental status grossly normal Objective Data Vital Signs Vital Signs: Vital Signs - 24 hr 03/26/20 14:00 03/26/20 19:28 03/26/20 22:00 Temperature 36.7 C 36.6 C Pulse Rate 54 L 54 L 58 L Respiratory Rate 18 18 18 Blood Pressure 158/80 H 189/95 H Pulse Oximetry 97 97 100 03/27/20 06:00 03/27/20 08:34 Temperature 36.8 C Pulse Rate 58 L 58 L Respiratory Rate 18 Blood Pressure 193/89 H Pulse Oximetry 98 Intake/Output Intake/Output: Intake & Output 03/24/20 03/25/20 03/26/20 03/27/20 23:59 23:59 23:59 23:59 Intake Total 745 904 3097 480 Balance 946 616 6968 480 Meds/Results Medications: Active Medications Generic Name Dose Route Start Last Admin Trade Name Freq PRN Reason Stop Dose Admin Acetaminophen 650 mg 03/18/20 22:59 03/26/20 10:37 Tylenol Tablet PO 650 mg Q4H PRN Administration Pain or Fever Aspirin 81 mg 03/18/20 09:00 03/27/20 08:33 Aspirin Ec PO 81 mg DAILY CRISTIAN Administration Atenolol 50 mg 03/18/20 09:00 03/27/20 08:34 Tenormin PO 50 mg DAILY CRISTIAN Administration Atorvastatin Calcium 40 mg 03/17/20 21:00 03/26/20 20:22 Lipitor PO 40 mg HS CRISTIAN Administration Citalopram Hydrobromide 20 mg 03/18/20 09:00 03/27/20 08:33 Celexa PO 20 mg DAILY CRISTAIN Administration Clopidogrel Bisulfate 75 mg 03/18/20 09:00 03/27/20 08:33 Plavix PO 75 mg DAILY CRISTIAN Administration Hydralazine HCl 25 mg 03/23/20 06:05 03/27/20 05:59 Apresoline Tablet PO 25 mg Q8HR CRISTIAN Administration Nitroglycerin 0.4 mg 03/17/20 18:27 Nitrostat Subl 0.4 Mg (1/150) SUBLINGUAL Q5MIN PRN Chest Pain Pantoprazole Sodium 40 mg 03/18/20 09:00 03/27/20 08:33 Protonix PO 40 mg QAM CRISTIAN Administration Valsartan 80 mg 03/18/20 09:00 03/27/20 08:34 Diovan PO 80 mg DAILY CRISTIAN Administration Vitamin D 1,000 unit 03/18/20 09:00 03/27/20 08:33 Vitamin D PO 1,000 unit DAILY CRISTIAN Administration Radiology Results: ITS Impressions Venous Doppler Study 03/22/20 15:27 IMPRESSION: 1: No lower extremity deep venous thrombosis. Head CT 03/26/20 10:21 IMPRESSION: 1. Areas of low attenuation in the bilateral basal ganglia and midbrain which may reflect subacute or chronic infarct. 2. Age related findings. Progress Note: A&P Assessment and Plan (1) Swelling of lower extremity: Code(s):
[2020-03-27 14:00] VITALS: BP 144/88; PULSE 60; RESP 20; TEMP 37.7; O2SAT 99
[2020-03-27] MEDS: ACETAMINOPHEN 325 MG TABLET 650 MG PO ×2 (14:07→22:26)
[2020-03-27 20:00] VITALS: PULSE 61; RESP 19; O2SAT 100
[2020-03-27] MEDS: ATORVASTATIN 40 MG TABLET PO (21:38)
[2020-03-27 22:00] VITALS: BP 179/89; PULSE 61; RESP 19; TEMP 37.4; O2SAT 100
[2020-03-28] VITALS (7 sets, daily range): BP systolic 133–187; BP diastolic 61–83; PULSE 50–62; RESP 18–20; TEMP 36.7–37.1; O2SAT 96–98
[2020-03-28] MEDS: hydrALAZINE HCL 25 MG TABLET PO ×3 (06:10→21:01)
[2020-03-28] MEDS: ASPIRIN 81 MG ENTERIC TABLET PO (09:15)
[2020-03-28] MEDS: CHOLECALCIFEROL 1,000 UNIT TABLET 1000 UNITS PO (09:15)
[2020-03-28] MEDS: PANTOPRAZOLE 40 MG TABLET PO (09:15)
[2020-03-28] MEDS: atenoloL 50 MG TABLET PO (09:15)
[2020-03-28] MEDS: CLOPIDOGREL BISULFATE 75 MG TABLET PO (09:15)
[2020-03-28] MEDS: CITALOPRAM HYDROBROMIDE 20 MG TABLET PO (09:15)
[2020-03-28] MEDS: VALSARTAN 80 MG TABLET PO (09:16)
[2020-03-28] MEDS: ACETAMINOPHEN 325 MG TABLET 650 MG PO ×2 (09:16→13:56)
[2020-03-28] MEDS: ATORVASTATIN 40 MG TABLET PO (21:01)
[2020-03-29] MEDS: hydrALAZINE HCL 25 MG TABLET PO ×3 (05:24→22:16)
[2020-03-29 06:00] VITALS: BP 182/55; PULSE 49; RESP 16; TEMP 37.1; O2SAT 95
[2020-03-29] MEDS: ASPIRIN 81 MG ENTERIC TABLET PO (08:25)
[2020-03-29] MEDS: CITALOPRAM HYDROBROMIDE 20 MG TABLET PO (08:25)
[2020-03-29] MEDS: CLOPIDOGREL BISULFATE 75 MG TABLET PO (08:26)
[2020-03-29] MEDS: PANTOPRAZOLE 40 MG TABLET PO (08:26)
[2020-03-29] MEDS: CHOLECALCIFEROL 1,000 UNIT TABLET 1000 UNITS PO (08:26)
[2020-03-29] MEDS: ACETAMINOPHEN 325 MG TABLET 650 MG PO ×3 (08:27→22:18)
[2020-03-29] MEDS: VALSARTAN 80 MG TABLET PO (08:27)
[2020-03-29 08:29] VITALS: PULSE 56
[2020-03-29] MEDS: atenoloL 50 MG TABLET PO (08:29)
[2020-03-29 14:00] VITALS: BP 181/84; PULSE 55; RESP 20; TEMP 37; O2SAT 99
--- NOTE | 2020-03-29 14:27 | WPDNEURORHBP ---
Subjective Date/time seen: 03/29/20 14:27 Interval history: this 74-year-old woman is here after having had stroke she is improving as for as the neurological deficits concerned however concerned about her high blood pressure which I have addressed a it by changing Diovan to higher dose she denies any headache nausea vomiting chest pain shortness of breath fever chills or sore throat Review of Systems Review of Systems: All systems reviewed & are unremarkable except as noted in HPI and below Functional Status Ambulation Ability Ability to Ambulate 10 Feet: Standby Assistance Ability to Ambulate 50 Feet With 2 Turns: Standby Assistance Ability to Ambulate 150 Feet: Standby Assistance Ambulation Assistive Devices: Cane, Conrado Transfers Ability Ability to Transfer In/Out of Chair: Standby Assistance Exam Const: General: comfortable and no acute distress HENMT: General nose exam: Normal nares present Mouth: Yes moist mucous membranes Eyes: General: appearance normal, both eyes and all related structures Neck: Neck: supple and no JVD Resp: Effort & Inspection: normal respiratory effort Auscultation: clear to auscultation bilaterally Cardio: Rate: regular rate Rhythm: regular rhythm GI: GI Palp: Yes Soft to palpation Auscultation: normal bowel sounds Skin: General skin exam: normal color and no rashes or lesions noted Neuro: Other: she is awake alert and well oriented time place person has normal speech language function left-sided hemiparesis improving Extrem: General: normal to inspection Psych: Mental Status: mental status grossly normal Objective Data Vital Signs Vital Signs: Vital Signs - 24 hr 03/28/20 20:00 03/28/20 20:10 03/28/20 22:00 Temperature 36.7 C 36.7 C Pulse Rate 51 L 51 L 51 L Respiratory Rate 20 20 20 Blood Pressure 183/83 H 187/83 H Pulse Oximetry 98 98 98 03/29/20 06:00 03/29/20 08:29 Temperature 37.1 C Pulse Rate 49 L 56 L Respiratory Rate 16 Blood Pressure 182/55 H Pulse Oximetry 95 Intake/Output Intake/Output: Intake & Output 03/26/20 03/27/20 03/28/20 03/29/20 23:59 23:59 23:59 23:59 Intake Total 1200 720 720 240 Balance 1200 720 720 240 Meds/Results Medications: Active Medications Generic Name Dose Route Start Last Admin Trade Name Freq PRN Reason Stop Dose Admin Acetaminophen 650 mg 03/18/20 22:59 03/29/20 14:07 Tylenol Tablet PO 650 mg Q4H PRN Administration Pain or Fever Aspirin 81 mg 03/18/20 09:00 03/29/20 08:25 Aspirin Ec PO 81 mg DAILY [facility] Administration Atenolol 50 mg 03/18/20 09:00 03/29/20 08:29 Tenormin PO 50 mg DAILY [facility] Administration Atorvastatin Calcium 40 mg 03/17/20 21:00 03/28/20 21:01 Lipitor PO 40 mg HS [facility] Administration Citalopram Hydrobromide 20 mg 03/18/20 09:00 03/29/20 08:25 Celexa PO 20 mg DAILY [facility] Administration Clopidogrel Bisulfate 75 mg 03/18/20 09:00 03/29/20 08:26 Plavix PO 75 mg DAILY [facility] Administration Hydralazine HCl 25 mg 03/23/20 06:05 03/29/20 14:07 Apresoline Tablet PO 25 mg Q8HR [facility] Administration Nitroglycerin 0.4 mg 03/17/20 18:27 Nitrostat Subl 0.4 Mg (1/150) SUBLINGUAL Q5MIN PRN Chest Pain Pantoprazole Sodium 40 mg 03/18/20 09:00 03/29/20 08:26 Protonix PO 40 mg QAM [facility] Administration Valsartan 80 mg 03/18/20 09:00 03/29/20 08:27 Diovan PO 80 mg DAILY [facility] Administration Valsartan 160 mg 03/30/20 09:00 Diovan PO DAILY [facility] Vitamin D 1,000 unit 03/18/20 09:00 03/29/20 08:26 Vitamin D PO 1,000 unit DAILY [facility] Administration Radiology Results: ITS Impressions Venous Doppler Study 03/22/20 15:27 IMPRESSION: 1: No lower extremity deep venous thrombosis. Head CT 03/26/20 10:21 IMPRESSION: 1. Areas of low attenuation in the bilateral basal ganglia and midbrain which may reflect subacute or chronic infarct. 2. Age related fi
[2020-03-29 20:00] VITALS: PULSE 55; RESP 18; O2SAT 96
[2020-03-29 22:00] VITALS: BP 169/87; PULSE 55; RESP 18; TEMP 37.1; O2SAT 96
[2020-03-29] MEDS: ATORVASTATIN 40 MG TABLET PO (22:16)
[2020-03-30] MEDS: hydrALAZINE HCL 25 MG TABLET PO ×3 (05:51→21:41)
[2020-03-30 06:00] VITALS: BP 161/68; PULSE 51; RESP 19; TEMP 36.9; O2SAT 97
[2020-03-30 08:23] VITALS: PULSE 51
[2020-03-30] MEDS: VALSARTAN 160 MG TABLET PO (08:23)
[2020-03-30] MEDS: CLOPIDOGREL BISULFATE 75 MG TABLET PO (08:23)
[2020-03-30] MEDS: CITALOPRAM HYDROBROMIDE 20 MG TABLET PO (08:23)
[2020-03-30] MEDS: atenoloL 50 MG TABLET PO (08:23)
[2020-03-30] MEDS: CHOLECALCIFEROL 1,000 UNIT TABLET 1000 UNITS PO (08:23)
[2020-03-30] MEDS: ASPIRIN 81 MG ENTERIC TABLET PO (08:23)
[2020-03-30] MEDS: PANTOPRAZOLE 40 MG TABLET PO (08:23)
[2020-03-30] MEDS: ACETAMINOPHEN 325 MG TABLET 650 MG PO ×2 (08:24→21:44)
[2020-03-30 14:00] VITALS: BP 146/71; PULSE 54; RESP 18; TEMP 37.4; O2SAT 99
--- NOTE | 2020-03-30 17:34 | WPDNEURORHBP ---
Subjective Date/time seen: 03/30/20 17:34 Interval history: the patient is here for the left hemiparesis is improving she denies any headache nausea vomiting chest pain shortness of breath fever chills or sore throat Review of Systems Review of Systems: All systems reviewed & are unremarkable except as noted in HPI and below Functional Status Ambulation Ability Ability to Ambulate 10 Feet: Contact Guard Ability to Ambulate 50 Feet With 2 Turns: Contact Guard Ability to Ambulate 150 Feet: Standby Assistance Ambulation Assistive Devices: Cane, Conrado Transfers Ability Ability to Transfer In/Out of Chair: Standby Assistance Exam Const: General: comfortable and no acute distress HENMT: General nose exam: Normal nares present Mouth: Yes moist mucous membranes Eyes: General: appearance normal, both eyes and all related structures Neck: Neck: supple and no JVD Resp: Effort & Inspection: normal respiratory effort Auscultation: clear to auscultation bilaterally Cardio: Rate: regular rate Rhythm: regular rhythm GI: GI Palp: Yes Soft to palpation Auscultation: normal bowel sounds Skin: General skin exam: normal color and no rashes or lesions noted Neuro: Other: patient is awake and alert and well oriented left-sided hemiparesis is improving Extrem: General: normal to inspection Psych: Mental Status: mental status grossly normal Objective Data Vital Signs Vital Signs: Vital Signs - 24 hr 03/29/20 20:00 03/29/20 22:00 03/30/20 06:00 Temperature 37.1 C 36.9 C Pulse Rate 55 L 55 L 51 L Respiratory Rate 18 18 19 Blood Pressure 169/87 H 161/68 H Pulse Oximetry 96 96 97 03/30/20 08:23 03/30/20 14:00 Temperature 37.4 C Pulse Rate 51 L 54 L Respiratory Rate 18 Blood Pressure 146/71 H Pulse Oximetry 99 Intake/Output Intake/Output: Intake & Output 03/27/20 03/28/20 03/29/20 03/30/20 23:59 23:59 23:59 23:59 Intake Total 720 720 720 720 Balance 720 720 720 720 Meds/Results Medications: Active Medications Generic Name Dose Route Start Last Admin Trade Name Freq PRN Reason Stop Dose Admin Acetaminophen 650 mg 03/18/20 22:59 03/30/20 08:24 Tylenol Tablet PO 650 mg Q4H PRN Administration Pain or Fever Aspirin 81 mg 03/18/20 09:00 03/30/20 08:23 Aspirin Ec PO 81 mg DAILY [facility] Administration Atenolol 50 mg 03/18/20 09:00 03/30/20 08:23 Tenormin PO 50 mg DAILY [facility] Administration Atorvastatin Calcium 40 mg 03/17/20 21:00 03/29/20 22:16 Lipitor PO 40 mg HS [facility] Administration Citalopram Hydrobromide 20 mg 03/18/20 09:00 03/30/20 08:23 Celexa PO 20 mg DAILY [facility] Administration Clopidogrel Bisulfate 75 mg 03/18/20 09:00 03/30/20 08:23 Plavix PO 75 mg DAILY [facility] Administration Hydralazine HCl 25 mg 03/23/20 06:05 03/30/20 13:10 Apresoline Tablet PO 25 mg Q8HR [facility] Administration Nitroglycerin 0.4 mg 03/17/20 18:27 Nitrostat Subl 0.4 Mg (1/150) SUBLINGUAL Q5MIN PRN Chest Pain Pantoprazole Sodium 40 mg 03/18/20 09:00 03/30/20 08:23 Protonix PO 40 mg QAM [facility] Administration Valsartan 160 mg 03/30/20 09:00 03/30/20 08:23 Diovan PO 160 mg DAILY [facility] Administration Vitamin D 1,000 unit 03/18/20 09:00 03/30/20 08:23 Vitamin D PO 1,000 unit DAILY [facility] Administration Radiology Results: ITS Impressions Venous Doppler Study 03/22/20 15:27 IMPRESSION: 1: No lower extremity deep venous thrombosis. Head CT 03/26/20 10:21 IMPRESSION: 1. Areas of low attenuation in the bilateral basal ganglia and midbrain which may reflect subacute or chronic infarct. 2. Age related findings. Progress Note: A&P Assessment and Plan (1) Swelling of lower extremity: Code(s): M79.89 - Other specified soft tissue disorders Status: Acute (2) Hyperlipidemia: Code(s): E78.5 - Hyperlipidemia, unspecified Status: Acute (3) Hypertension:
[2020-03-30] MEDS: ATORVASTATIN 40 MG TABLET PO (21:41)
[2020-03-30 22:00] VITALS: BP 169/69; PULSE 52; RESP 18; TEMP 37; O2SAT 100
[2020-03-31 06:00] VITALS: BP 176/89; PULSE 66; RESP 18; TEMP 37; O2SAT 99
[2020-03-31] MEDS: hydrALAZINE HCL 25 MG TABLET PO ×3 (06:20→21:03)
[2020-03-31 08:36] VITALS: PULSE 66
[2020-03-31] MEDS: VALSARTAN 160 MG TABLET PO (08:36)
[2020-03-31] MEDS: CLOPIDOGREL BISULFATE 75 MG TABLET PO (08:36)
[2020-03-31] MEDS: CITALOPRAM HYDROBROMIDE 20 MG TABLET PO (08:36)
[2020-03-31] MEDS: atenoloL 50 MG TABLET PO (08:36)
[2020-03-31] MEDS: ASPIRIN 81 MG ENTERIC TABLET PO (08:36)
[2020-03-31] MEDS: CHOLECALCIFEROL 1,000 UNIT TABLET 1000 UNITS PO (08:36)
[2020-03-31] MEDS: PANTOPRAZOLE 40 MG TABLET PO (08:36)
[2020-03-31 14:00] VITALS: BP 173/74; PULSE 54; RESP 20; TEMP 37.1; O2SAT 99
--- NOTE | 2020-03-31 17:19 | WPDNEURORHBP ---
Subjective Date/time seen: 03/31/20 17:19 Interval history: the patient with left-sided hemiparesis is improving looking forward to go home next week in a few days denies any headache nausea vomiting chest pain shortness of breath fever chills sore throat Review of Systems Review of Systems: All systems reviewed & are unremarkable except as noted in HPI and below Functional Status Ambulation Ability Ability to Ambulate 10 Feet: Contact Guard Ability to Ambulate 50 Feet With 2 Turns: Contact Guard Ability to Ambulate 150 Feet: Contact Guard Ambulation Assistive Devices: Cane, Conrado Transfers Ability Ability to Transfer In/Out of Chair: Standby Assistance Exam Const: General: comfortable and no acute distress HENMT: General nose exam: Normal nares present Mouth: Yes moist mucous membranes Eyes: General: appearance normal, both eyes and all related structures Neck: Neck: supple and no JVD Resp: Effort & Inspection: normal respiratory effort Auscultation: clear to auscultation bilaterally Cardio: Rate: regular rate Rhythm: regular rhythm GI: GI Palp: Yes Soft to palpation Auscultation: normal bowel sounds Skin: General skin exam: normal color and no rashes or lesions noted Neuro: Other: remains awake alert and well oriented time place and person left-sided hemiparesis improving and pretty much will be ready to go home middle of next week Extrem: General: normal to inspection Psych: Mental Status: mental status grossly normal Objective Data Vital Signs Vital Signs: Vital Signs - 24 hr 03/30/20 22:00 03/31/20 06:00 03/31/20 08:36 Temperature 37.0 C 37.0 C Pulse Rate 52 L 66 66 Respiratory Rate 18 18 Blood Pressure 169/69 H 176/89 H Pulse Oximetry 100 99 03/31/20 14:00 Temperature 37.1 C Pulse Rate 54 L Respiratory Rate 20 Blood Pressure 173/74 H Pulse Oximetry 99 Intake/Output Intake/Output: Intake & Output 03/28/20 03/29/20 03/30/20 03/31/20 23:59 23:59 23:59 23:59 Intake Total 576 292 8427 960 Balance 577 215 5306 960 Meds/Results Medications: Active Medications Generic Name Dose Route Start Last Admin Trade Name Freq PRN Reason Stop Dose Admin Acetaminophen 650 mg 03/18/20 22:59 03/30/20 21:44 Tylenol Tablet PO 650 mg Q4H PRN Administration Pain or Fever Aspirin 81 mg 03/18/20 09:00 03/31/20 08:36 Aspirin Ec PO 81 mg DAILY [facility] Administration Atenolol 50 mg 03/18/20 09:00 03/31/20 08:36 Tenormin PO 50 mg DAILY [facility] Administration Atorvastatin Calcium 40 mg 03/17/20 21:00 03/30/20 21:41 Lipitor PO 40 mg HS [facility] Administration Citalopram Hydrobromide 20 mg 03/18/20 09:00 03/31/20 08:36 Celexa PO 20 mg DAILY [facility] Administration Clopidogrel Bisulfate 75 mg 03/18/20 09:00 03/31/20 08:36 Plavix PO 75 mg DAILY [facility] Administration Hydralazine HCl 25 mg 03/23/20 06:05 03/31/20 13:59 Apresoline Tablet PO 25 mg Q8HR [facility] Administration Nitroglycerin 0.4 mg 03/17/20 18:27 Nitrostat Subl 0.4 Mg (1/150) SUBLINGUAL Q5MIN PRN Chest Pain Pantoprazole Sodium 40 mg 03/18/20 09:00 03/31/20 08:36 Protonix PO 40 mg QAM [facility] Administration Valsartan 160 mg 03/30/20 09:00 03/31/20 08:36 Diovan PO 160 mg DAILY [facility] Administration Vitamin D 1,000 unit 03/18/20 09:00 03/31/20 08:36 Vitamin D PO 1,000 unit DAILY [facility] Administration Radiology Results: ITS Impressions Venous Doppler Study 03/22/20 15:27 IMPRESSION: 1: No lower extremity deep venous thrombosis. Head CT 03/26/20 10:21 IMPRESSION: 1. Areas of low attenuation in the bilateral basal ganglia and midbrain which may reflect subacute or chronic infarct. 2. Age related findings. Progress Note: A&P Assessment and Plan (1) Swelling of lower extremity: Code(s): M79.89 - Other specified soft tissue disorders Status: Acute (2) Hyperlipidemia: Code(s):
[2020-03-31] MEDS: ATORVASTATIN 40 MG TABLET PO (21:03)
[2020-03-31] MEDS: ACETAMINOPHEN 325 MG TABLET 650 MG PO (21:03)
[2020-03-31 22:00] VITALS: BP 181/78; PULSE 53; RESP 18; TEMP 37; O2SAT 97
[2020-04-01] MEDS: hydrALAZINE HCL 25 MG TABLET PO ×3 (05:02→20:05)
[2020-04-01 05:31] LABS: Basophils Percent Auto 0.8 % (0.2-1.2); Eosinophils Absolute Auto 0.3 K/mm3 (0-0.3); Eosinophils Percent Auto 5.4 % (0-4.4); Hemoglobin 11.4 g/dL (12.0-15.0); Immature Granulocyte Absolute 0.01 K/mm3 (0.00-0.031); Immature Granulocyte Percent A 0.2 % (0-0.5); Lymphocytes Absolute Auto 1.29 K/mm3 (0.9-3.2); Lymphocytes Percent Auto 26.9 % (18.3-44.2); Mean Corpuscular HGB Conc 32.6 g/dl (32-36); Mean Corpuscular Hemoglobin 27.2 pg (26-34); Mean Corpuscular Volume 83.5 fl (80-100); Mean Platelet Volume 11.8 fl (7.4-10.4); Monocytes Absolute Auto 0.7 K/mm3 (0.1-0.6); Monocytes Percent Auto 14.6 % (2.6-8.5); Neutrophils Absolute Auto 2.5 K/mm3 (1.3-6.7); Neutrophils Percent Auto 52.1 % (45.5-73.1); Platelet Count Result 215 k/mm3 (150-375); Red Blood Count 4.19 M/mm3 (4.2-5.4); Red Cell Distribution Width 16.2 % (11.5-14.5); White Blood Count 4.8 K/mm3 (4.5-10.0)
[2020-04-01 05:43] LABS: Blood Urea Nitrogen 17 mg/dL (7-17); Calcium 9.5 mg/dL (8.4-10.2); Carbon Dioxide 27 mmol/L (22-30); Chloride 108 mmol/L (98-107); Estimated CRCL calculation 34 ml/min; Estimated Glomerular Filt Rate 40; Glucose 97 mg/dL (65-105); Potassium 4.1 mmol/L (3.4-5.0); Sodium 139 mmol/L (137-145)
[2020-04-01 06:00] VITALS: BP 177/84; PULSE 55; RESP 18; TEMP 36.6; O2SAT 96
[2020-04-01] MEDS: CITALOPRAM HYDROBROMIDE 20 MG TABLET PO (08:30)
[2020-04-01] MEDS: CHOLECALCIFEROL 1,000 UNIT TABLET 1000 UNITS PO (08:30)
[2020-04-01 08:31] VITALS: PULSE 55
[2020-04-01] MEDS: CLOPIDOGREL BISULFATE 75 MG TABLET PO (08:31)
[2020-04-01] MEDS: atenoloL 50 MG TABLET PO (08:31)
[2020-04-01] MEDS: VALSARTAN 160 MG TABLET PO (08:31)
[2020-04-01] MEDS: PANTOPRAZOLE 40 MG TABLET PO (08:31)
[2020-04-01] MEDS: ASPIRIN 81 MG ENTERIC TABLET PO (08:31)
--- NOTE | 2020-04-01 09:31 | PCDIET ---
Nutrition Follow-Up Complete: Nutrition Diagnosis: Decreased fat/cholesterol needs related to cardiovascular disease as evidenced by CVA. Nutrition Goal: Patient will continue to consume 75% of meals or greater. Goal met. Patient consuming 100% of most meals on 2g sodium, minced and moist diet. Recommend heart healthy, minced and moist diet upon discharge. Last recorded weight is 80.1 kg. Recommend obtaining new weight. Bowel Motility: Last documented BM on 03/30/20. Labs Reviewed: Hgb (11.4), Hct (35.0), Cr (1.3) Meds Noted: Protonix, Vitamin D Additional Notes: No documented skin breakdown. Will continue to monitor with same goal. Nutrition Monitoring and Evaluation: Follow up in 7 days.
--- NOTE | 2020-04-01 11:02 | WPDNEURORHBP ---
Subjective Date/time seen: 04/01/20 11:02 Left hemiparesis improving Review of Systems Review of Systems: All systems reviewed & are unremarkable except as noted in HPI and below Functional Status Ambulation Ability Ability to Ambulate 10 Feet: Standby Assistance Ability to Ambulate 50 Feet With 2 Turns: Standby Assistance Ability to Ambulate 150 Feet: Contact Guard Ambulation Assistive Devices: Cane, Conrado Transfers Ability Ability to Transfer In/Out of Chair: Standby Assistance Exam Const: General: cooperative, healthy appearing, comfortable and no acute distress HENMT: Head: normal to inspection General nose exam: No nasal discharge present Mouth: Yes Normal oral and palatal mucosa present Eyes: General: appearance normal, both eyes and all related structures Neck: Neck: full ROM Resp: Effort & Inspection: normal respiratory effort Auscultation: clear to auscultation bilaterally Cardio: Rate: regular rate Rhythm: regular rhythm GI: Auscultation: normal bowel sounds Skin: General skin exam: no rashes or lesions noted Neuro: General: patient oriented x3 Motor exam (neuro): Abnormal motor strength present (left conrado improvung) Psych: Appearance: grossly normal Objective Data Vital Signs Vital Signs: Vital Signs - 24 hr 03/31/20 14:00 03/31/20 22:00 04/01/20 06:00 Temperature 37.1 C 37.0 C 36.6 C Pulse Rate 54 L 53 L 55 L Respiratory Rate 20 18 18 Blood Pressure 173/74 H 181/78 H 177/84 H Pulse Oximetry 99 97 96 04/01/20 08:31 Temperature Pulse Rate 55 L Respiratory Rate Blood Pressure Pulse Oximetry Intake/Output Intake/Output: Intake & Output 03/29/20 03/30/20 03/31/20 04/01/20 23:59 23:59 23:59 23:59 Intake Total 720 1200 1320 240 Balance 720 1200 1320 240 Meds/Results Medications: Active Medications Generic Name Dose Route Start Last Admin Trade Name Freq PRN Reason Stop Dose Admin Acetaminophen 650 mg 03/18/20 22:59 03/31/20 21:03 Tylenol Tablet PO 650 mg Q4H PRN Administration Pain or Fever Aspirin 81 mg 03/18/20 09:00 04/01/20 08:31 Aspirin Ec PO 81 mg DAILY [facility] Administration Atenolol 50 mg 03/18/20 09:00 04/01/20 08:31 Tenormin PO 50 mg DAILY [facility] Administration Atorvastatin Calcium 40 mg 03/17/20 21:00 03/31/20 21:03 Lipitor PO 40 mg HS [facility] Administration Citalopram Hydrobromide 20 mg 03/18/20 09:00 04/01/20 08:30 Celexa PO 20 mg DAILY [facility] Administration Clopidogrel Bisulfate 75 mg 03/18/20 09:00 04/01/20 08:31 Plavix PO 75 mg DAILY [facility] Administration Hydralazine HCl 25 mg 03/23/20 06:05 04/01/20 05:02 Apresoline Tablet PO 25 mg Q8HR [facility] Administration Nitroglycerin 0.4 mg 03/17/20 18:27 Nitrostat Subl 0.4 Mg (1/150) SUBLINGUAL Q5MIN PRN Chest Pain Pantoprazole Sodium 40 mg 03/18/20 09:00 04/01/20 08:31 Protonix PO 40 mg QAM [facility] Administration Valsartan 160 mg 03/30/20 09:00 04/01/20 08:31 Diovan PO 160 mg DAILY [facility] Administration Vitamin D 1,000 unit 03/18/20 09:00 04/01/20 08:30 Vitamin D PO 1,000 unit DAILY [facility] Administration Radiology Results: ITS Impressions Venous Doppler Study 03/22/20 15:27 IMPRESSION: 1: No lower extremity deep venous thrombosis. Head CT 03/26/20 10:21 IMPRESSION: 1. Areas of low attenuation in the bilateral basal ganglia and midbrain which may reflect subacute or chronic infarct. 2. Age related findings. Labs Labs: Laboratory Results - last 24 hr 04/01/20 04/01/20 04:43 04:43 WBC 4.8 RBC 4.19 L Hgb 11.4 L Hct 35.0 L MCV 83.5 MCH 27.2 MCHC 32.6 RDW 16.2 H Plt Count 215 MPV 11.8 H Immature Gran % (Auto) 0.2 Neut % (Auto) 52.1 Lymph % (Auto) 26.9 [place] % (Auto) 14.6 H Eos % (Auto) 5.4 H Baso % (Auto) 0.8 Lymph # (Auto) 1.29 [place] # (Auto) 0.7 H Eos # (Auto) 0.3 Baso # (Auto) 0.0 Abs Immat Gran (au
[2020-04-01] MEDS: ACETAMINOPHEN 325 MG TABLET 650 MG PO (12:59)
[2020-04-01 14:00] VITALS: BP 165/73; PULSE 67; RESP 20; TEMP 36.6; O2SAT 100
[2020-04-01] MEDS: ATORVASTATIN 40 MG TABLET PO (20:05)
[2020-04-01 22:00] VITALS: BP 183/93; PULSE 55; RESP 18; TEMP 37.2; O2SAT 96
[2020-04-02] MEDS: hydrALAZINE HCL 25 MG TABLET PO (05:21)
[2020-04-02] MEDS: NITROGLYCERIN SL 0.4 MG TABLET SUBLINGUAL (05:23)
[2020-04-02 08:06] VITALS: PULSE 55
[2020-04-02] MEDS: CITALOPRAM HYDROBROMIDE 20 MG TABLET PO (08:06)
[2020-04-02] MEDS: CLOPIDOGREL BISULFATE 75 MG TABLET PO (08:06)
[2020-04-02] MEDS: PANTOPRAZOLE 40 MG TABLET PO (08:06)
[2020-04-02] MEDS: VALSARTAN 160 MG TABLET PO (08:06)
[2020-04-02] MEDS: atenoloL 50 MG TABLET PO (08:06)
[2020-04-02] MEDS: ASPIRIN 81 MG ENTERIC TABLET PO (08:06)
[2020-04-02] MEDS: CHOLECALCIFEROL 1,000 UNIT TABLET 1000 UNITS PO (08:06)
--- NOTE | 2020-04-02 13:36 | WPDNEURORHBP ---
Subjective Date/time seen: 04/02/20 13:36 Interval history: this 74-year-old woman is here after having had stroke which has left her with left-sided hemiparesis she is doing remarkably well however the is concerned while on the telephone about the systolic high blood pressure for which I am going to increase her hydralazine she denies any headache nausea vomiting chest pain or shortness of breath and wants to go home tomorrow as we have planned tentatively before Review of Systems Review of Systems: All systems reviewed & are unremarkable except as noted in HPI and below Functional Status Ambulation Ability Ability to Ambulate 10 Feet: Independent Ability to Ambulate 50 Feet With 2 Turns: Independent Ability to Ambulate 150 Feet: Independent Ambulation Assistive Devices: Cane, Conrado Transfers Ability Ability to Transfer In/Out of Chair: Standby Assistance Exam Const: General: comfortable and no acute distress HENMT: General nose exam: Normal nares present Mouth: Yes moist mucous membranes Eyes: General: appearance normal, both eyes and all related structures Neck: Neck: supple and no JVD Resp: Effort & Inspection: normal respiratory effort Auscultation: clear to auscultation bilaterally Cardio: Rate: regular rate Rhythm: regular rhythm GI: GI Palp: Yes Soft to palpation Auscultation: normal bowel sounds Skin: General skin exam: normal color and no rashes or lesions noted Neuro: Other: patient is awake and alert well oriented and improved left-sided hemiparesis Extrem: General: normal to inspection Psych: Mental Status: mental status grossly normal Objective Data Vital Signs Vital Signs: Vital Signs - 24 hr 04/01/20 14:00 04/01/20 22:00 04/02/20 08:06 Temperature 36.6 C 37.2 C Pulse Rate 67 55 L 55 L Respiratory Rate 20 18 Blood Pressure 165/73 H 183/93 H Pulse Oximetry 100 96 Intake/Output Intake/Output: Intake & Output 03/30/20 03/31/20 04/01/20 04/02/20 23:59 23:59 23:59 23:59 Intake Total 1200 1320 720 480 Balance 1200 1320 720 480 Meds/Results Medications: Active Medications Generic Name Dose Route Start Last Admin Trade Name Freq PRN Reason Stop Dose Admin Acetaminophen 650 mg 03/18/20 22:59 04/01/20 12:59 Tylenol Tablet PO 650 mg Q4H PRN Administration Pain or Fever Aspirin 81 mg 03/18/20 09:00 04/02/20 08:06 Aspirin Ec PO 81 mg DAILY [facility] Administration Atenolol 50 mg 03/18/20 09:00 04/02/20 08:06 Tenormin PO 50 mg DAILY [facility] Administration Atorvastatin Calcium 40 mg 03/17/20 21:00 04/01/20 20:05 Lipitor PO 40 mg HS [facility] Administration Citalopram Hydrobromide 20 mg 03/18/20 09:00 04/02/20 08:06 Celexa PO 20 mg DAILY [facility] Administration Clopidogrel Bisulfate 75 mg 03/18/20 09:00 04/02/20 08:06 Plavix PO 75 mg DAILY [facility] Administration Hydralazine HCl 50 mg 04/02/20 14:00 Apresoline Tablet PO Q8HR [facility] Nitroglycerin 0.4 mg 03/17/20 18:27 04/02/20 05:23 Nitrostat Subl 0.4 Mg (1/150) SUBLINGUAL 0.4 mg Q5MIN PRN Administration Chest Pain Pantoprazole Sodium 40 mg 03/18/20 09:00 04/02/20 08:06 Protonix PO 40 mg QAM [facility] Administration Valsartan 160 mg 03/30/20 09:00 04/02/20 08:06 Diovan PO 160 mg DAILY [facility] Administration Vitamin D 1,000 unit 03/18/20 09:00 04/02/20 08:06 Vitamin D PO 1,000 unit DAILY [facility] Administration Radiology Results: ITS Impressions Venous Doppler Study 03/22/20 15:27 IMPRESSION: 1: No lower extremity deep venous thrombosis. Head CT 03/26/20 10:21 IMPRESSION: 1. Areas of low attenuation in the bilateral basal ganglia and midbrain which may reflect subacute or chronic infarct. 2. Age related findings. Progress Note: A&P Assessment and Plan (1) Swelling of lower extremity: Code(s): M79.89 - Other specified soft tissue disorders Status: Acute (2) Hyperlipi
[2020-04-02] MEDS: hydrALAZINE HCL 50 MG TABLET PO ×2 (13:50→23:58)
[2020-04-02] MEDS: ACETAMINOPHEN 325 MG TABLET 650 MG PO (13:50)
[2020-04-02 14:00] VITALS: BP 156/67; PULSE 74; RESP 20; TEMP 36.2; O2SAT 99
[2020-04-02 20:00] VITALS: PULSE 51; RESP 18; O2SAT 99
[2020-04-02] MEDS: ATORVASTATIN 40 MG TABLET PO (20:31)
[2020-04-02 22:00] VITALS: BP 179/78; PULSE 51; RESP 16; TEMP 37.6; O2SAT 99
[2020-04-03] MEDS: hydrALAZINE HCL 50 MG TABLET PO (05:57)
[2020-04-03 06:00] VITALS: BP 189/86; PULSE 58; RESP 18; TEMP 37.4; O2SAT 95
[2020-04-03] MEDS: ACETAMINOPHEN 325 MG TABLET 650 MG PO (06:00)
[2020-04-03 09:33] VITALS: PULSE 58
[2020-04-03] MEDS: ASPIRIN 81 MG ENTERIC TABLET PO (09:33)
[2020-04-03] MEDS: atenoloL 50 MG TABLET PO (09:33)
[2020-04-03] MEDS: CITALOPRAM HYDROBROMIDE 20 MG TABLET PO (09:35)
[2020-04-03] MEDS: CLOPIDOGREL BISULFATE 75 MG TABLET PO (09:35)
[2020-04-03] MEDS: PANTOPRAZOLE 40 MG TABLET PO (09:35)
[2020-04-03] MEDS: CHOLECALCIFEROL 1,000 UNIT TABLET 1000 UNITS PO (09:35)
[2020-04-03] MEDS: VALSARTAN 160 MG TABLET PO (09:35)
--- NOTE | 2020-04-03 12:45 | WPDNEURORHBP ---
Subjective Date/time seen: 04/03/20 12:45 Interval history: this 74-year-old woman has completed the acute rehab after having had a stroke which had left her with left-sided hemiparesis she is much improved and ready to be discharged this afternoon she denies any headache nausea vomiting chest pain shortness of breath fever chills or sore throat Review of Systems Review of Systems: All systems reviewed & are unremarkable except as noted in HPI and below Functional Status Ambulation Ability Ability to Ambulate 10 Feet: Independent Ability to Ambulate 50 Feet With 2 Turns: Independent Ability to Ambulate 150 Feet: Independent Ambulation Assistive Devices: Cane, Conrado Transfers Ability Ability to Transfer In/Out of Chair: Standby Assistance Exam Const: General: comfortable and no acute distress HENMT: General nose exam: Normal nares present Mouth: Yes moist mucous membranes Eyes: General: appearance normal, both eyes and all related structures Neck: Neck: supple and no JVD Resp: Effort & Inspection: normal respiratory effort Auscultation: clear to auscultation bilaterally Cardio: Rate: regular rate Rhythm: regular rhythm GI: GI Palp: Yes Soft to palpation Auscultation: normal bowel sounds Skin: General skin exam: normal color and no rashes or lesions noted Neuro: Other: patient is awake alert well oriented with normal speech language function and improved left-sided hemiparesis Extrem: General: normal to inspection Psych: Mental Status: mental status grossly normal Objective Data Vital Signs Vital Signs: Vital Signs - 24 hr 04/02/20 14:00 04/02/20 20:00 04/02/20 22:00 Temperature 36.2 C L 37.6 C Pulse Rate 74 51 L 51 L Respiratory Rate 20 18 16 Blood Pressure 156/67 H 179/78 H Pulse Oximetry 99 99 99 04/03/20 06:00 04/03/20 09:33 Temperature 37.4 C Pulse Rate 58 L 58 L Respiratory Rate 18 Blood Pressure 189/86 H Pulse Oximetry 95 Intake/Output Intake/Output: Intake & Output 03/31/20 04/01/20 04/02/20 04/03/20 23:59 23:59 23:59 23:59 Intake Total 1320 720 720 240 Balance 1320 720 720 240 Meds/Results Medications: Active Medications Generic Name Dose Route Start Last Admin Trade Name Freq PRN Reason Stop Dose Admin Acetaminophen 650 mg 03/18/20 22:59 04/03/20 06:00 Tylenol Tablet PO 650 mg Q4H PRN Administration Pain or Fever Aspirin 81 mg 03/18/20 09:00 04/03/20 09:33 Aspirin Ec PO 81 mg DAILY [facility] Administration Atenolol 50 mg 03/18/20 09:00 04/03/20 09:33 Tenormin PO 50 mg DAILY [facility] Administration Atorvastatin Calcium 40 mg 03/17/20 21:00 04/02/20 20:31 Lipitor PO 40 mg HS [facility] Administration Citalopram Hydrobromide 20 mg 03/18/20 09:00 04/03/20 09:35 Celexa PO 20 mg DAILY [facility] Administration Clopidogrel Bisulfate 75 mg 03/18/20 09:00 04/03/20 09:35 Plavix PO 75 mg DAILY [facility] Administration Hydralazine HCl 50 mg 04/02/20 14:00 04/03/20 05:57 Apresoline Tablet PO 50 mg Q8HR [facility] Administration Nitroglycerin 0.4 mg 03/17/20 18:27 04/02/20 05:23 Nitrostat Subl 0.4 Mg (1/150) SUBLINGUAL 0.4 mg Q5MIN PRN Administration Chest Pain Pantoprazole Sodium 40 mg 03/18/20 09:00 04/03/20 09:35 Protonix PO 40 mg QAM [facility] Administration Valsartan 160 mg 03/30/20 09:00 04/03/20 09:35 Diovan PO 160 mg DAILY [facility] Administration Vitamin D 1,000 unit 03/18/20 09:00 04/03/20 09:35 Vitamin D PO 1,000 unit DAILY [facility] Administration Radiology Results: ITS Impressions Venous Doppler Study 03/22/20 15:27 IMPRESSION: 1: No lower extremity deep venous thrombosis. Head CT 03/26/20 10:21 IMPRESSION: 1. Areas of low attenuation in the bilateral basal ganglia and midbrain which may reflect subacute or chronic infarct. 2. Age related findings. Progress Note: A&P Assessment and Plan (1) Swelling of lower extremity: Co
--- NOTE | 2020-04-06 13:22 | DS_ITS ---
DATE OF DISCHARGE: 04/03/2020 DISCHARGE ACUTE REHABILITATION DIAGNOSIS: Right internal capsular stroke. DISCHARGE ACTIVE COMORBID CONDITIONS: 1. Depression. 2. Hyperlipidemia. 3. Hypertension. REASON FOR ADMISSION: A 74-year-old right-handed female presented to [facility] on 03/04/2020 with complaints of left-sided weakness with facial droop. Reportedly, she went to sleep around 11:00 p.m., woke up at 10:00 a.m., was unable to get out of bed with obvious left-sided weakness along with the droopiness of the face and difficulties in speech. Initial evaluation included a CT scan, which was negative. Her blood pressure was 242/95. She was started on aspirin, Plavix, and atorvastatin. MRI of the brain documented acute stroke in the right internal capsule. Negative carotid ultrasound. Negative echocardiogram. Subsequently, she passed swallowing test and was placed on pureed diet with no straws. She was also found to have UTI with E. coli and started on Rocephin. She continued to have left-sided weakness with balance difficulties and dysphagia. She was discharged to rehab on Lovenox. The patient had not traveled outside the [place] or had any contact with someone who was ill or had travel outside the [place] in the past 21 days and she was not experiencing any symptoms of Quiros virus infection. Therapy was started on the Acute Care Facility. She was transferred from [facility] to on 03/16/2020 with no history of any major surgery or fall within the last 100 days. LEVEL OF FUNCTION AT THE TIME OF ADMISSION: She was independent in eating, required supervision for oral hygiene, bathing, upper body dressing, required substantial assistance for toileting, lower body dressing, footwear, required partial assistance for rolling in bed, sit to lying, supervision only for lying to sitting, substantial assistance for sit to stand, chair transfer, toilet transfer, car transfer. She was unable to walk 10 feet, 50 feet with 2 turns, 150 feet, 10 feet on uneven surfaces, curb or step, 4 steps, 12 steps or wheelchair for 150 feet. She was dependent for picking up object and she required supervision for wheelchair for 50 feet. ANTICIPATED REHAB GOALS: Anticipated rehab goals at the time of admission were to make her independent in all the modalities except that she will require supervision for curb or step, 4 steps and 12 steps. LEVEL OF FUNCTION AT THE TIME OF DISCHARGE: She required setup for eating, independent for oral hygiene, supervision for toileting, bathing, setup for upper body dressing, supervision for lower body dressing, supervision for toilet transfer, walking 10 feet on uneven surfaces, curb or step, 4 steps, 12 steps, but she required setup for upper body dressing and picking up objects, though she became independent in footwear, rolling in bed, sit to lying, lying to sitting, sit to stand, chair transfer, car transfer, 10 feet walking, 50 feet walking with 2 turns and walking 150 feet as well as wheelchair for 50 feet and 150 feet. HOSPITAL COURSE: During the hospitalization, she was actively involved in the physical therapy and occupational therapy. No other physician was consulted during this entire hospitalization. At the time of discharge, she was able to ambulate 10 feet independently, 50 feet with 2 turns independently, 150 feet independently with Conrado-cane. She was able to transfer in and out of chair standby assistance. Her general physical examination remained stable, so as the neuro and her vital signs also remained stable. DISCHARGE INSTRUCTIONS: Included may shower, no driving, and diet as tolerated. DISCHARGE MEDICATIONS: 1. Tylenol 650 mg q.4 hours p.r.n. 2. Hydralazine 50 mg q.8 hours. 3. Valsartan 150 mg p.o. daily. 4. Aspirin 81 mg daily. 5. A
== END 2020-04-03 13:40 | disposition home health service (06) | DRG 57 ==
PROVIDERS: Admitting Provider Psychiatry & Neurology Neurology; PCP Family Medicine; Visit Provider Psychiatry & Neurology Neurology
DX: I69.354 Hemiplegia and hemiparesis following cerebral infarction affecting left non-dominant side (principal); I69.322 Dysarthria following cerebral infarction; I69.392 Facial weakness following cerebral infarction; M79.89 Other specified soft tissue disorders; R51 Headache; E78.5 Hyperlipidemia, unspecified; F32.9 Major depressive disorder, single episode, unspecified; I10 Essential (primary) hypertension; Z79.82 Long term (current) use of aspirin; Z79.02 Long term (current) use of antithrombotics/antiplatelets
CPT/HCPCS: 36415; 70450; 80048; 80061; 85025; 92523; 92526; 93970; 97110; 97112; 97116; 97162; 97166; 97530; 97535; 97542; A9270